=== PATIENT | female | born 1950 | race African-American/Black ===

== ENCOUNTER 2022-12-03 14:44 | Inpatient (IN) | payer OTHER, MEDICAID ==
[2022-12-03] VITALS (7 sets, daily range): BP systolic 109–155
[~2022-12-03] VITALS: Ht 167.6 cm; Wt 135.6 kg
[~2022-12-03 14:44] MED LIST: ACET325T53 PO; AMIO200T66 PO; ASPI-1393 PO; BISA10SU61 RC; COR3.125 PO; DOCU-144 PO; DORZ10DR10 RIGHT EYE; FER300L PO; FURO-149 PO; GUAI100S14 PO; HYDR-4037 PO; HYDR100T25 PO; LIDOINT TP; LIFI1DRO3 LEFT EYE; LOSA100T23 PO; MAGN400T10 PO; MOM PO; POLY17PO44 PO; POTA-197 PO; PREDEYE1% RIGHT EYE; PRO40 PO; TIMO5DRO15 RIGHT EYE; TOBR3.5O2 LEFT EYE; TRAM50TA2 PO; VITD2000 PO; XALEYE OP
--- NOTE | 2022-12-03 14:45 | NUR ---
Patient to ER bed 6 to gown for evaluation. Side rails up.
--- NOTE | 2022-12-03 14:46 | NUR ---
ER at bedside examining patient.
--- NOTE | 2022-12-03 14:47 | NUR ---
Pt bib LACF 64 c/o Resp arrest while en route to other hospital.
[2022-12-03] MEDS ORDERED: PROPOFOL DRIP 100 ML IV ONE ×2 (15:00)
--- NOTE | 2022-12-03 15:00 | NUR ---
PT INTUBATED FOR RESP FAILURE.
--- NOTE | 2022-12-03 15:08 | NUR ---
COVID SWAB COLLECTED AND SENT TO LAB.
--- NOTE | 2022-12-03 15:19 | NUR ---
MRSA SWAB COLLECTED AND SENT TO LAB.
[2022-12-03 15:43] LABS: BASOPHILS % (AUTO) 0.8 % (0.0-2.0); EOSINOPHILS % (AUTO) 0.2 % (0.0-4.0); HEMATOCRIT 37.1 % (36-48); HEMOGLOBIN 11.2 g/dL (12.0-16.0); LYMPHOCYTES # (AUTO) 0.6 K/uL (1.0-5.5); LYMPHOCYTES % (AUTO) 19.1 % (20.5-51.5); MEAN CORPUSCULAR HEMOGLOBIN 27 pg (27-31); MEAN CORPUSCULAR HGB CONC 30 % (32-36); MEAN CORPUSCULAR VOLUME 89 fL (79.0-98.0); MONOCYTES # (AUTO) 0.2 K/uL (0.0-1.0); NEUTROPHILS # (AUTO) 2.5 K/uL (1.8-7.7); NEUTROPHILS % (AUTO) 74.9 % (40.0-70.0); RED BLOOD CELL COUNT(AUTO) 4.16 MIL/uL (4.2-6.2); RED CELL DISTRIBUTION WIDTH 16.4 % (9.0-15.0); WHITE BLOOD COUNT (AUTO) 3.3 K/uL (4.8-10.8)
[2022-12-03 16:00] LABS: ALANINE AMINOTRANSFERASE 14 U/L (12-78); ASPARTATE AMINOTRANSFERASE 23 U/L (10-37); C-REACTIVE PROTEIN QUANT 1.5 mg/dL (0-0.5); CALCIUM 10.1 mg/dL (8.4-11.0); CHLORIDE 100 mmol/L (98-107); CREATININE 0.84 mg/dL (0.55-1.30); GLUCOSE 149 mg/dL (70-99); TOTAL BILIRUBIN 0.5 mg/dL (0.0-1.0); UREA NITROGEN, BLOOD 17 mg/dL (8-21)
[2022-12-03 16:01] LABS: GFR AFRICAN AMERICAN 86 mL/min (>90)
[2022-12-03 16:03] LABS: ANION GAP < 3 (5-15)
[2022-12-03 16:09] LABS: PLATELET COUNT (AUTO) 118 K/uL (130-430)
[2022-12-03] MEDS ORDERED: cefTRIAXone 1 GM in D5W 50 ML IV ONE (16:30)
--- NOTE | 2022-12-03 17:00 | NUR ---
CRITICAL LAB VALUES: D-DIMER [id number] NOTIFIED
[2022-12-03 17:11] LABS: INR 1.1 (0.8-1.2); PROTHROMBIN TIME 11.2 SECS (9.5-12.5)
[2022-12-03] MEDS ORDERED: cefTRIAXone 1 GM IVPB PREMIX 50 ML IV ONE (18:22)
[2022-12-03] MEDS ORDERED: MORPHINE 2 MG/ML INJ. SYRINGE IVP PRN ×2 (19:00)
[2022-12-03] MEDS ORDERED: MUPIROCIN 2% TOPICAL OINTMENT 22 GM NS PRN (19:00)
[2022-12-03] MEDS ORDERED: DOCUSATE SODIUM 100 MG CAPSULE PO PRN (19:00)
[2022-12-03] MEDS ORDERED: ONDANSETRON HCL 4 MG/2 ML VIAL IVP PRN (19:00)
[2022-12-03] MEDS ORDERED: ACETAMINOPHEN 325 MG TABLET PO PRN ×2 (19:00→20:30)
[2022-12-03] MEDS ORDERED: MAGNESIUM SULFATE 50 ML IV PRN (19:00)
[2022-12-03] MEDS ORDERED: hydrALAZINE HCL 20 MG/ML VIAL IVP PRN (19:00)
[2022-12-03] MEDS ORDERED: POTASSIUM CHLORIDE 20 MEQ TAB.PRT.SR PO PRN (19:00)
--- NOTE | 2022-12-03 19:00 | NUR ---
Admit bed requested Patient will be admitted to care of . Admitted to ICU unit. Diagnosis ACUTE RESP FAILURE Inpatient (Yes or No) Y Observation (Yes or No) N Orientation concerns or request close to nursing station (Yes or No) N Covid Status POS On vent or bipap YES Isolation requirements YES Needs a sitter N From Home (Yes or if No enter name of facility) [facility] Requires Dialysis (Yes or No) N Med Rec Completed (Yes of No) Y
--- NOTE | 2022-12-03 19:56 | NUR ---
CAME IN AND SAID THIS IS HIS PATIENT, TO CANCLE DR. FIGUEROA'S ORDERS AND HE WILL PUT IN ORDERS
[2022-12-03] MEDS ORDERED: DEXAMETHASONE SOD PHOSPHATE 4 MG/ML VIAL IVP ONE (20:30)
[2022-12-03] MEDS ORDERED: traMADol HCL HCL 50 MG TABLET (ULTRAM) PO PRN (20:30)
[2022-12-03] MEDS ORDERED: BISACODYL 10 MG/SUPPOSITORY RC PRN (20:30)
[2022-12-03] MEDS ORDERED: ACETAMINOPHEN 325 MG TABLET PO SCH (20:30)
[2022-12-03] MEDS: D5/0.45 NS 1,000 ML IV SCH (20:52)
[2022-12-03] MEDS: CARVEDILOL 3.125 MG TABLET (COREG) PO SCH (20:55)
[2022-12-03] MEDS: VANCOMYCIN HCL 1,250 MG in NS 250 ML IV SCH (20:56)
[2022-12-03] MEDS ORDERED: HEPARIN SODIUM,PORCINE 5,000 UNITS/ML VIAL SUBCUT SCH (21:00)
[2022-12-03] MEDS: DORZOLAMIDE HCL/TIMOLOL MAL. 10 ML EYE DROPS (COSOPT) RIGHT EYE SCH (21:00)
[2022-12-03] MEDS: MILK OF MAGNESIA 30 ML UDC PO SCH (21:00)
[2022-12-03] MEDS: prednisoLONE 1% OPHTHALMIC SUSPN 5 ML OP SCH (21:00)
[2022-12-03] MEDS ORDERED: TOBRAMYCIN/DEXAMETHASONE Non-Formulary 3.5 GM EYE OINT. OP SCH (21:00)
[2022-12-03] MEDS: TOBRAMYCIN SULFATE 0.3% EYE DROPS 5 ML OP SCH (21:00)
[2022-12-03] MEDS: MAGNESIUM OXIDE 400 MG TABLET PO SCH (21:00)
[2022-12-03] MEDS: LATANOPROST 2.5 ML DROPS (XALATAN) OP SCH (21:00)
[2022-12-03] MEDS ORDERED: LIFITEGRAST LEFT EYE SCH (21:00)
[2022-12-03] MEDS: TIMOLOL MALEATE 0.5% OPHTHALMIC DROPS 5 ML RIGHT EYE SCH (21:00)
--- NOTE | 2022-12-03 22:33 | NUR ---
Patient will be admitted to care of DR. Funes. Admitted to unit. Will go to room . Belongings list completed. Complete and up to date summary report printed. SBAR report to be given at bedside with opportunity for questions.
--- NOTE | 2022-12-03 23:30 | NUR ---
RN NOTES CONSULTS FOR DR. DUENAS AND DR. AUNDREA BRAY.
[2022-12-03] MEDS ORDERED: PIPERACILLIN/TAZOBACTAM 3.375 GM/VIAL (ZOSYN) IV ONE (23:46)
[2022-12-03] MEDS: ENOXAPARIN SODIUM 40 MG/0.4 ML SYRINGE SUBCUT SCH (23:53)
[2022-12-03] MEDS: PIPERACILLIN/TAZO 3.375/DEX-IS 50 ML IV SCH (23:54)
[2022-12-04] VITALS (30 sets, daily range): BP systolic 102–189
[2022-12-04] MEDS: PIPERACILLIN/TAZO 3.375/DEX-IS 50 ML IV SCH ×3 (05:05→19:16)
[2022-12-04 07:29] LABS: BASOPHILS % (AUTO) 0.3 % (0.0-2.0); EOSINOPHILS % (AUTO) 0.1 % (0.0-4.0); HEMATOCRIT 36.6 % (36-48); HEMOGLOBIN 11.2 g/dL (12.0-16.0); LYMPHOCYTES # (AUTO) 0.6 K/uL (1.0-5.5); LYMPHOCYTES % (AUTO) 7.3 % (20.5-51.5); MEAN CORPUSCULAR HEMOGLOBIN 27 pg (27-31); MEAN CORPUSCULAR HGB CONC 31 % (32-36); MEAN CORPUSCULAR VOLUME 88 fL (79.0-98.0); MONOCYTES # (AUTO) 0.3 K/uL (0.0-1.0); MONOCYTES % (AUTO) 3.2 % (1.7-9.3); NEUTROPHILS # (AUTO) 7.2 K/uL (1.8-7.7); NEUTROPHILS % (AUTO) 89.1 % (40.0-70.0); PLATELET COUNT (AUTO) 118 K/uL (130-430); RED BLOOD CELL COUNT(AUTO) 4.14 MIL/uL (4.2-6.2); RED CELL DISTRIBUTION WIDTH 15.9 % (9.0-15.0); WHITE BLOOD COUNT (AUTO) 8.1 K/uL (4.8-10.8)
[2022-12-04 07:48] LABS: CALCIUM 10.7 mg/dL (8.4-11.0); CREATININE 0.89 mg/dL (0.55-1.30)
--- NOTE | 2022-12-04 08:00 | NUR ---
Upon morning assessment, this RN attempted to assess bilateral pupils; patient squeezed left eye closed. Right eye with drainage and ANDRZEJ to assess pupils. Eye drops ordered and administered.
[2022-12-04] MEDS: DORZOLAMIDE HCL/TIMOLOL MAL. 10 ML EYE DROPS (COSOPT) RIGHT EYE SCH ×2 (08:29→21:41)
[2022-12-04] MEDS: VANCOMYCIN HCL 1,250 MG in NS 250 ML IV SCH (08:29)
[2022-12-04] MEDS: prednisoLONE 1% OPHTHALMIC SUSPN 5 ML OP SCH ×3 (08:29→21:40)
[2022-12-04] MEDS: TOBRAMYCIN SULFATE 0.3% EYE DROPS 5 ML OP SCH ×2 (08:29→21:40)
[2022-12-04] MEDS: ALBUTEROL SULFATE 0.083% 2.5 MG/3 ML VIAL.NEB INH PRN (08:30)
[2022-12-04] MEDS: TIMOLOL MALEATE 0.5% OPHTHALMIC DROPS 5 ML RIGHT EYE SCH ×3 (08:30→21:41)
[2022-12-04] MEDS: DOCUSATE SODIUM 100 MG CAPSULE PO SCH (09:00)
[2022-12-04] MEDS ORDERED: PANTOPRAZOLE SODIUM 40 MG TAB PO SCH (09:00)
[2022-12-04] MEDS: PANTOPRAZOLE SODIUM 40 MG/VIAL (PROTONIX) IVP SCH (09:58)
[2022-12-04] MEDS: DEXAMETHASONE SOD PHOSPHATE 4 MG/ML VIAL IVP SCH (09:58)
[2022-12-04] MEDS: D5/0.45 NS 1,000 ML IV SCH (10:23)
[2022-12-04] MEDS ORDERED: BARICITINIB -Non-Formulary 2 MG TABLET PO ONE (11:00)
[2022-12-04] MEDS: MILK OF MAGNESIA 30 ML UDC PO SCH ×2 (11:16→21:26)
[2022-12-04] MEDS: FUROSEMIDE 40 MG TABLET PO SCH (11:16)
[2022-12-04] MEDS: ASPIRIN 81 MG TABLET(ECOTRIN) PO SCH (11:16)
[2022-12-04] MEDS: POLYETHYLENE GLYCOL 3350, 17 GM/ POWD.PACK PO SCH (11:17)
[2022-12-04] MEDS: CARVEDILOL 3.125 MG TABLET (COREG) PO SCH ×2 (11:17→21:25)
[2022-12-04] MEDS: CHOLECALCIFEROL (VITAMIN D3) 2,000 UNIT TABLET PO SCH (11:17)
[2022-12-04] MEDS: AMIODARONE HCL 200 MG TABLET PO SCH (11:18)
[2022-12-04] MEDS: AZITHROMYCIN 500 MG in NS 250 ML IV SCH (11:19)
[2022-12-04] MEDS: MAGNESIUM OXIDE 400 MG TABLET PO SCH ×2 (11:19→21:26)
--- NOTE | 2022-12-04 14:22 | NUR ---
CONSULTATION PAGED/CALLED Reason for Consultation: CHF Person Who was Notified: TESSY Consulting Physician: SAMANT. Finney Journeyman Pipe Fitter Specialty: JONATHAN Ordering Physician: KADHIUM. Apple
[2022-12-04 14:55] LABS: INR 1.2 (0.8-1.2); PROTHROMBIN TIME 11.9 SECS (9.5-12.5)
--- NOTE | 2022-12-04 16:07 | NUR ---
Approximately 0930- Dr. Kaur called in. Aware OGT placed and chest xray pending to start tube feeding. Approximately 0935- Dr. Regalado called in. Aware patient covid 19 positive yesterday. To enter new orders. Approximately 1200- Dr. Mckeon rounded. Aware patient has #22 G PIV and LLE I/O access. To enter new orders. Dr. Novoa rounded while this RN on meal break. To return at later time. Approximately 1330- Dr. Kaur at bedside. New orders entered. Approximately 1405- Consult called per corporation secretary to Dr. Mars.
--- NOTE | 2022-12-04 16:20 | NUR ---
RT NOTES FIO2 to 0.30 per titration order. RN made aware
--- NOTE | 2022-12-04 17:30 | NUR ---
Dr. Kaur made aware this RN attempted to contact brother for PICC line consent. Left voicemail but no return call. To deem and document medically necessary. This RN with 2 unsuccessful attempts for peripheral IV's. plastic tubing insulation supervisor made aware.
--- NOTE | 2022-12-04 18:30 | NUR ---
PICC RN called this RN. Made aware Dr. Kaur will document medical necessity for PICC line as family member did not return voicemail/call.
[2022-12-04] MEDS: LATANOPROST 2.5 ML DROPS (XALATAN) OP SCH (21:26)
[2022-12-04] MEDS: ENOXAPARIN SODIUM 40 MG/0.4 ML SYRINGE SUBCUT SCH (21:26)
[2022-12-05] VITALS (31 sets, daily range): BP systolic 143–193
[2022-12-05] MEDS: PIPERACILLIN/TAZO 3.375/DEX-IS 50 ML IV SCH ×5 (05:09→23:22)
[2022-12-05 05:16] LABS: BASOPHILS % (AUTO) 0.1 % (0.0-2.0); HEMATOCRIT 32.8 % (36-48); HEMOGLOBIN 10.5 g/dL (12.0-16.0); LYMPHOCYTES # (AUTO) 1.2 K/uL (1.0-5.5); LYMPHOCYTES % (AUTO) 18.3 % (20.5-51.5); MEAN CORPUSCULAR HEMOGLOBIN 27 pg (27-31); MEAN CORPUSCULAR HGB CONC 32 % (32-36); MEAN CORPUSCULAR VOLUME 85 fL (79.0-98.0); MONOCYTES # (AUTO) 0.7 K/uL (0.0-1.0); MONOCYTES % (AUTO) 11.2 % (1.7-9.3); NEUTROPHILS # (AUTO) 4.4 K/uL (1.8-7.7); NEUTROPHILS % (AUTO) 70.4 % (40.0-70.0); PLATELET COUNT (AUTO) 130 K/uL (130-430); RED BLOOD CELL COUNT(AUTO) 3.83 MIL/uL (4.2-6.2); RED CELL DISTRIBUTION WIDTH 16.2 % (9.0-15.0); WHITE BLOOD COUNT (AUTO) 6.3 K/uL (4.8-10.8)
[2022-12-05 05:32] LABS: CALCIUM 10.6 mg/dL (8.4-11.0); CREATININE 1.14 mg/dL (0.55-1.30)
[2022-12-05] MEDS: PROPOFOL DRIP 100 ML IV PRN ×4 (05:42→22:31)
[2022-12-05] MEDS ORDERED: KCL 40 mEq in 100 mL (PREMIX) 100 ML IV ONE (06:00)
[2022-12-05] MEDS ORDERED: POTASSIUM CHLORIDE 20 MEQ/PKT PACKET PO ONE (06:00)
[2022-12-05] MEDS: POLYETHYLENE GLYCOL 3350, 17 GM/ POWD.PACK PO SCH (08:19)
[2022-12-05] MEDS: PANTOPRAZOLE SODIUM 40 MG/VIAL (PROTONIX) IVP SCH (08:19)
[2022-12-05] MEDS: MAGNESIUM OXIDE 400 MG TABLET PO SCH ×2 (08:21→21:09)
[2022-12-05] MEDS: DOCUSATE SODIUM 100 MG CAPSULE PO SCH (08:22)
[2022-12-05] MEDS: CARVEDILOL 3.125 MG TABLET (COREG) PO SCH ×2 (08:23→21:09)
[2022-12-05] MEDS: FUROSEMIDE 40 MG TABLET PO SCH (08:23)
[2022-12-05] MEDS: ASPIRIN 81 MG TABLET(ECOTRIN) PO SCH (08:23)
[2022-12-05] MEDS: DEXAMETHASONE SOD PHOSPHATE 4 MG/ML VIAL IVP SCH (08:24)
[2022-12-05] MEDS: AMIODARONE HCL 200 MG TABLET PO SCH (08:24)
[2022-12-05] MEDS: KCL 20 mEq in D5/0.45NS 1000mL 1,000 ML IV SCH ×2 (08:25→15:55)
[2022-12-05] MEDS: MILK OF MAGNESIA 30 ML UDC PO SCH ×2 (08:25→21:10)
[2022-12-05] MEDS: prednisoLONE 1% OPHTHALMIC SUSPN 5 ML OP SCH ×3 (08:28→22:39)
[2022-12-05] MEDS: LIFITEGRAST 5% OP SCH ×2 (08:28→22:39)
[2022-12-05] MEDS: BARICITINIB -Non-Formulary 2 MG TABLET PO SCH (08:29)
[2022-12-05] MEDS: TOBRAMYCIN SULFATE 0.3% EYE DROPS 5 ML OP SCH ×2 (08:29→22:39)
[2022-12-05] MEDS: CHOLECALCIFEROL (VITAMIN D3) 2,000 UNIT TABLET PO SCH (08:30)
[2022-12-05] MEDS: DORZOLAMIDE HCL/TIMOLOL MAL. 10 ML EYE DROPS (COSOPT) RIGHT EYE SCH ×2 (08:30→22:40)
[2022-12-05] MEDS: TIMOLOL MALEATE 0.5% OPHTHALMIC DROPS 5 ML RIGHT EYE SCH ×3 (08:31→22:40)
--- NOTE | 2022-12-05 08:40 | NUR ---
SPOKE WITH DR STONER. ADVISED PT IS IN V-TACH AND HAS BEEN GOING IN AND OUT OF V-TACH. ORDERED AN EKG STAT. Addendum: 12/05/22 at 1332 by Keira Aguilar RN EKG SHOWS V-PACED
[2022-12-05] MEDS: AZITHROMYCIN 500 MG in NS 250 ML IV SCH (12:01)
--- NOTE | 2022-12-05 12:13 | NUR ---
1155 cpap 5 ps 10 trial. hr 61 rr30 sat 97%, tv 180. pt was able to do 10min of cpap, low volumes. placed on ac12 400tv per dr yeison scruggs. rn aware, will cont to monitor. Addendum: 12/05/22 at 1216 by Yuko Purcell RT Amended: Links added.
[2022-12-05] MEDS: hydrALAZINE HCL 25 MG TABLET PO SCH ×2 (15:53→21:11)
[2022-12-05] MEDS: D5/0.45 NS 1,000 ML IV SCH ×2 (15:54)
--- NOTE | 2022-12-05 19:15 | NUR ---
Opening notes Received report from endorsing morning shift RN for continuity of care. Patient is lying in bed with IVF D5 1/2 NS @ 65 mL/hr, and propofol @ 25 mcg/kg/min. Patient's vital signs blood pressure 167/93, heart rate 60, respirations 19, SPO2 @ 100% on ventilator. Ventilator settings AC 12, tidal volume 400, FIO2 30%, and peep of 5. OGT is in place, tube feeding is off per MD. Hernández catheter is in place draining to gravity. Bed is locked and in lowest position, call light button within reach, fall and safety precautions is in place.
[2022-12-05] MEDS: ENOXAPARIN SODIUM 40 MG/0.4 ML SYRINGE SUBCUT SCH (21:11)
[2022-12-05] MEDS: LATANOPROST 2.5 ML DROPS (XALATAN) OP SCH (22:40)
[2022-12-06] VITALS (33 sets, daily range): BP systolic 146–187
[2022-12-06] MEDS: PROPOFOL DRIP 100 ML IV PRN ×3 (03:51→22:06)
[2022-12-06] MEDS: hydrALAZINE HCL 25 MG TABLET PO SCH ×3 (05:47→21:13)
[2022-12-06] MEDS: PIPERACILLIN/TAZO 3.375/DEX-IS 50 ML IV SCH ×3 (05:47→18:48)
[2022-12-06] MEDS: KCL 20 mEq in D5/0.45NS 1000mL 1,000 ML IV SCH ×2 (05:47→21:13)
[2022-12-06] MEDS: hydrALAZINE HCL 20 MG/ML VIAL IVP PRN ×4 (05:48→23:04)
[2022-12-06 05:57] LABS: BASOPHILS % (AUTO) 0.2 % (0.0-2.0); EOSINOPHILS % (AUTO) 0.1 % (0.0-4.0); HEMATOCRIT 34.7 % (36-48); HEMOGLOBIN 11.1 g/dL (12.0-16.0); LYMPHOCYTES # (AUTO) 1.1 K/uL (1.0-5.5); LYMPHOCYTES % (AUTO) 17.2 % (20.5-51.5); MEAN CORPUSCULAR HEMOGLOBIN 27 pg (27-31); MEAN CORPUSCULAR HGB CONC 32 % (32-36); MEAN CORPUSCULAR VOLUME 84 fL (79.0-98.0); MONOCYTES # (AUTO) 0.6 K/uL (0.0-1.0); MONOCYTES % (AUTO) 8.9 % (1.7-9.3); NEUTROPHILS # (AUTO) 4.9 K/uL (1.8-7.7); NEUTROPHILS % (AUTO) 73.6 % (40.0-70.0); PLATELET COUNT (AUTO) 141 K/uL (130-430); RED BLOOD CELL COUNT(AUTO) 4.14 MIL/uL (4.2-6.2); RED CELL DISTRIBUTION WIDTH 16.9 % (9.0-15.0); WHITE BLOOD COUNT (AUTO) 6.7 K/uL (4.8-10.8)
[2022-12-06 06:46] LABS: CALCIUM 10.3 mg/dL (8.4-11.0); CREATININE 0.87 mg/dL (0.55-1.30)
[2022-12-06 06:52] LABS: ALBUMIN 2.8 g/dL (3.4-4.8); BILIRUBIN,DIRECT 0.2 mg/dL (0.0-0.3); TOTAL BILIRUBIN 0.6 mg/dL (0.0-1.0)
--- NOTE | 2022-12-06 08:36 | NUR ---
Dietitian Recommendations * Ordered: Jevity 1.2 @ 50 mL/hr (goal rate), Prosource BID w/ FWF of 150 mL q4h via OGT: - Provides: 1440 kcals (1977 kcals w/ propofol), 67 g PRO, and 1868 mL of total volume daily. - Meets (w/ propofol): 98% of est. kcal needs, 86% of upper est. PRO needs, and 93% of lower est. fluid needs daily. Submitted for ANTWAN Davis by Aydee Johnson, MPH, RD Please see Nutrition Assessment for further details. Thanks!
[2022-12-06] MEDS: MAGNESIUM OXIDE 400 MG TABLET PO SCH ×2 (08:42→21:14)
[2022-12-06] MEDS: CARVEDILOL 3.125 MG TABLET (COREG) PO SCH ×2 (08:43→21:13)
[2022-12-06] MEDS: POLYETHYLENE GLYCOL 3350, 17 GM/ POWD.PACK PO SCH (08:44)
[2022-12-06] MEDS: AMIODARONE HCL 200 MG TABLET PO SCH (08:44)
[2022-12-06] MEDS: ASPIRIN 81 MG TABLET(ECOTRIN) PO SCH (08:45)
[2022-12-06] MEDS: FUROSEMIDE 40 MG TABLET PO SCH (08:48)
[2022-12-06] MEDS: PANTOPRAZOLE SODIUM 40 MG/VIAL (PROTONIX) IVP SCH (08:48)
[2022-12-06] MEDS: DEXAMETHASONE SOD PHOSPHATE 4 MG/ML VIAL IVP SCH (08:49)
[2022-12-06] MEDS: BARICITINIB -Non-Formulary 2 MG TABLET PO SCH (08:49)
--- NOTE | 2022-12-06 11:20 | NUR ---
rt notes 1120 Placed pt on CPAP 5,PS10 30% FIO2. Pt only lasted 15-17 mins of CPAP trial. Pt awake, eyes open but pt not pulling enough volume despite coaching, only (200-250ml vt). Pt saturating 99%. will try CPAP again tomorrow. 1137 CPAP trial ended.
[2022-12-06] MEDS: LIFITEGRAST 5% OP SCH ×2 (11:39→21:12)
[2022-12-06] MEDS: prednisoLONE 1% OPHTHALMIC SUSPN 5 ML OP SCH ×3 (11:40→21:12)
[2022-12-06] MEDS: TOBRAMYCIN SULFATE 0.3% EYE DROPS 5 ML OP SCH ×2 (11:40→21:12)
[2022-12-06] MEDS: DOCUSATE SODIUM 100 MG CAPSULE PO SCH (11:40)
[2022-12-06] MEDS: MILK OF MAGNESIA 30 ML UDC PO SCH ×2 (11:41→21:14)
[2022-12-06] MEDS: TIMOLOL MALEATE 0.5% OPHTHALMIC DROPS 5 ML RIGHT EYE SCH ×3 (11:41→21:14)
[2022-12-06] MEDS: CHOLECALCIFEROL (VITAMIN D3) 2,000 UNIT TABLET PO SCH (11:41)
[2022-12-06] MEDS: DORZOLAMIDE HCL/TIMOLOL MAL. 10 ML EYE DROPS (COSOPT) RIGHT EYE SCH ×2 (11:41→21:14)
[2022-12-06] MEDS: AZITHROMYCIN 500 MG in NS 250 ML IV SCH (13:10)
--- NOTE | 2022-12-06 19:15 | NUR ---
Opening notes Received report from endorsing morning shift RN for continuity of care. Patient is lying in bed with IVF D5 1/2 NS @ 65 mL/hr, and propofol @ 25 mcg/kg/min. Patient's vital signs blood pressure 163/105, heart rate 60, respirations 19, SPO2 @ 100% on ventilator. Ventilator settings AC 12, tidal volume 400, FIO2 30%, and peep of 5. OGT is in place, Jevity 1.2 @ 20 mL/hr. Hernández catheter is in place draining to gravity. Bed is locked and in lowest position, call light button within reach, fall and safety precautions is in place.
--- NOTE | 2022-12-06 21:00 | NUR ---
Case management Fanta from case management called for updates regarding patient's condition.
[2022-12-06] MEDS: LATANOPROST 2.5 ML DROPS (XALATAN) OP SCH (21:12)
[2022-12-06] MEDS: ENOXAPARIN SODIUM 40 MG/0.4 ML SYRINGE SUBCUT SCH (21:14)
[2022-12-07] VITALS (32 sets, daily range): BP systolic 105–196
[2022-12-07] MEDS: PIPERACILLIN/TAZO 3.375/DEX-IS 50 ML IV SCH ×4 (00:29→17:21)
[2022-12-07] MEDS: PROPOFOL DRIP 100 ML IV PRN ×3 (03:17→17:02)
[2022-12-07] MEDS: hydrALAZINE HCL 20 MG/ML VIAL IVP PRN ×2 (03:22→15:12)
[2022-12-07] MEDS: hydrALAZINE HCL 25 MG TABLET PO SCH ×3 (05:04→22:23)
[2022-12-07 06:27] LABS: BASOPHILS % (AUTO) 0.1 % (0.0-2.0); HEMATOCRIT 36.3 % (36-48); HEMOGLOBIN 11.7 g/dL (12.0-16.0); LYMPHOCYTES % (AUTO) 18.4 % (20.5-51.5); MEAN CORPUSCULAR HEMOGLOBIN 27 pg (27-31); MEAN CORPUSCULAR HGB CONC 32 % (32-36); MEAN CORPUSCULAR VOLUME 84 fL (79.0-98.0); MONOCYTES # (AUTO) 0.4 K/uL (0.0-1.0); MONOCYTES % (AUTO) 6.6 % (1.7-9.3); NEUTROPHILS # (AUTO) 4.2 K/uL (1.8-7.7); NEUTROPHILS % (AUTO) 74.9 % (40.0-70.0); PLATELET COUNT (AUTO) 147 K/uL (130-430); RED BLOOD CELL COUNT(AUTO) 4.34 MIL/uL (4.2-6.2); RED CELL DISTRIBUTION WIDTH 17.2 % (9.0-15.0); WHITE BLOOD COUNT (AUTO) 5.6 K/uL (4.8-10.8)
[2022-12-07 06:53] LABS: ALBUMIN 2.6 g/dL (3.4-4.8); BILIRUBIN,DIRECT 0.1 mg/dL (0.0-0.3); CALCIUM 10.2 mg/dL (8.4-11.0); CREATININE 0.73 mg/dL (0.55-1.30); TOTAL BILIRUBIN 0.5 mg/dL (0.0-1.0)
--- NOTE | 2022-12-07 07:30 | NUR ---
Opening notes Received report from endorsing NOC shift RN. Patient is on isolation for Covid-19. She is lying in bed with IVF D5 0.45 NS WITH 20 mEq KCL @ 65 mL/hr, and propofol @ 25 mcg/kg/min via her . PT intubated and sedated, ETT to vent with ventilator settings: ACVC Fio2 30%, RR 12, 400vt, and peep of 5 breathing E/U. OGT is in place and secured, running Jevity 1.2 @ 20 mL/hr (goal is 50 but she had around 100ml residuals) with FWF 150ml q4 hrs. Hernández catheter is in place draining to gravity. Bed is locked and in lowest position, call light button within reach, fall and safety precautions is in place. Will continue to monitor closely
--- NOTE | 2022-12-07 08:05 | NUR ---
RT NOTE: 08 Patient tried on CPAP 5, PS 10 at this time. 08 Patient placed on AC mode from CPAP due to RR in mid to high 30s, tidal volumes are lower than 200 per breath, patient is not easily arousable, and does not follow commands. Will continue to try CPAP when sedation is lowered more. Addendum: 12/07/22 at 0822 by Ashley Beard RT Amended: Links added.
[2022-12-07] MEDS: PANTOPRAZOLE SODIUM 40 MG/VIAL (PROTONIX) IVP SCH (08:23)
[2022-12-07] MEDS: BARICITINIB -Non-Formulary 2 MG TABLET PO SCH (08:23)
[2022-12-07] MEDS: DEXAMETHASONE SOD PHOSPHATE 4 MG/ML VIAL IVP SCH (08:23)
[2022-12-07] MEDS: CHOLECALCIFEROL (VITAMIN D3) 2,000 UNIT TABLET PO SCH (08:24)
[2022-12-07] MEDS: ASPIRIN 81 MG TABLET(ECOTRIN) PO SCH (08:25)
[2022-12-07] MEDS: FUROSEMIDE 40 MG TABLET PO SCH (08:25)
[2022-12-07] MEDS: acetaZOLAMIDE 250 MG TABLET (DIAMOX) PO SCH (08:25)
[2022-12-07] MEDS: CARVEDILOL 3.125 MG TABLET (COREG) PO SCH ×2 (08:26→22:25)
[2022-12-07] MEDS: AMIODARONE HCL 200 MG TABLET PO SCH (08:26)
[2022-12-07] MEDS: MAGNESIUM OXIDE 400 MG TABLET PO SCH ×2 (08:27→22:19)
[2022-12-07] MEDS: DORZOLAMIDE HCL/TIMOLOL MAL. 10 ML EYE DROPS (COSOPT) RIGHT EYE SCH ×2 (08:28→22:31)
[2022-12-07] MEDS: TIMOLOL MALEATE 0.5% OPHTHALMIC DROPS 5 ML RIGHT EYE SCH ×3 (08:28→22:32)
[2022-12-07] MEDS: prednisoLONE 1% OPHTHALMIC SUSPN 5 ML OP SCH ×3 (08:28→22:28)
[2022-12-07] MEDS: TOBRAMYCIN SULFATE 0.3% EYE DROPS 5 ML OP SCH ×2 (08:29→22:29)
[2022-12-07] MEDS: LIFITEGRAST 5% OP SCH ×2 (08:29→22:28)
[2022-12-07] MEDS: POLYETHYLENE GLYCOL 3350, 17 GM/ POWD.PACK PO SCH (08:31)
[2022-12-07] MEDS: MILK OF MAGNESIA 30 ML UDC PO SCH ×2 (08:31→21:00)
[2022-12-07] MEDS: DOCUSATE SODIUM 100 MG CAPSULE PO SCH (08:31)
--- NOTE | 2022-12-07 09:00 | NUR ---
PATIENT'S OGT RESIDUALS ARE 300 ML. PER DOCTOR'S ORDER HOLD FEEDING IF RESIDUALS ARE >200. WILL MONITOR AND REASSESS.
--- NOTE | 2022-12-07 11:13 | NUR ---
SPOKE WITH LAURA REQUESTING ORDERS FROM DR. HART.
[2022-12-07] MEDS: AZITHROMYCIN 500 MG in NS 250 ML IV SCH (12:05)
--- NOTE | 2022-12-07 13:17 | NUR ---
DR HART AND I DISCUSSED THE PATIENTS POC, HE IS AWARE OF THE ABG RESULTS FROM TODAY WELL THE NEGATIVE PCR FROM YESTERDAY 12/06, NO NEW ORDERS GIVEN AT THIS TIME
[2022-12-07] MEDS: KCL 20 mEq in D5/0.45NS 1000mL 1,000 ML IV SCH (13:32)
--- NOTE | 2022-12-07 14:45 | NUR ---
RT NOTE: 1445 Patient placed on SIMV 10, PS 12 at this time per Dr Novoa's order. Patient is tolerating change well. Will continue this mode as tolerated by patient. Addendum: 12/07/22 at 1455 by Ashley Beard RT Amended: Links added.
--- NOTE | 2022-12-07 17:30 | NUR ---
PATIENT'S SON ALEXEI ESPINOZA, CALLED FOR AN UPDATE ON HIS MOTHER.
--- NOTE | 2022-12-07 18:30 | NUR ---
PER DR. HART HE WANTS PATIENT TO DECREASE SEDATION TO ASSESS LOC, PROP REDUCED FROM 25MCG/KG/MIN TO 15MCG/KG/MIN. PATIENT OPENS EYES AND ABLE TO NOD HEAD APPROPRIATELY TO SIMPLE "YES" OR "NO" QUESTIONS AND COMMANDS. NO DISTRESS NOTED. WILL CONTINUE TO TITRATE/MONITOR.
--- NOTE | 2022-12-07 19:31 | NUR ---
REPORT GIVEN TO ONCOMING RN WHO ASSUMED TOTAL CARE OF THE PT AT THIS TIME WITH ALL QUESTIONS ANSWERED
--- NOTE | 2022-12-07 20:00 | NUR ---
LOOSE stool noted Total linin bed change TF to off position two person assist / new linin applied Reposition & turning tolerated skin dry warm .
[2022-12-07] MEDS: ENOXAPARIN SODIUM 40 MG/0.4 ML SYRINGE SUBCUT SCH (22:26)
[2022-12-07] MEDS: LATANOPROST 2.5 ML DROPS (XALATAN) OP SCH (22:30)
--- NOTE | 2022-12-07 23:53 | NUR ---
Propofol 20 mcg kg minute Patient pulls out Tubes Respirations Remain regular also unlabored / .
[2022-12-08] VITALS (31 sets, daily range): BP systolic 97–190
--- NOTE | 2022-12-08 | NUR ---
DR MCKINNEYIUM here to see patient , orders for AM labs .
[2022-12-08] MEDS: PIPERACILLIN/TAZO 3.375/DEX-IS 50 ML IV SCH ×5 (01:34→23:58)
--- NOTE | 2022-12-08 01:35 | NUR ---
APRESOLINE 50 MG per OG Tube helpful BP 155/93 HR 60 RR 19 02 SAT 100 %
[2022-12-08] MEDS: KCL 20 mEq in D5/0.45NS 1000mL 1,000 ML IV SCH ×2 (02:51→22:04)
[2022-12-08] MEDS: PROPOFOL DRIP 100 ML IV PRN ×2 (02:53→22:08)
--- NOTE | 2022-12-08 05:12 | NUR ---
loose large stool noted bed linin change total care , kept clean also dry CHG implemented position change tolerated .
[2022-12-08] MEDS: hydrALAZINE HCL 25 MG TABLET PO SCH ×3 (05:41→22:00)
[2022-12-08 06:17] LABS: ALBUMIN 2.5 g/dL (3.4-4.8); BILIRUBIN,DIRECT 0.2 mg/dL (0.0-0.3); CALCIUM 9.7 mg/dL (8.4-11.0); CREATININE 0.76 mg/dL (0.55-1.30); TOTAL BILIRUBIN 0.3 mg/dL (0.0-1.0)
--- NOTE | 2022-12-08 06:20 | NUR ---
APRESOLINE 50 MG via OGT has been administer as ordered , position change also tolerated / .
--- NOTE | 2022-12-08 07:02 | NUR ---
PHONED PAGED DR ANUP WEBER K 2.9
[2022-12-08] MEDS ORDERED: POTASSIUM CHLORIDE 20 MEQ TAB.PRT.SR PO ONE (07:30)
[2022-12-08] MEDS ORDERED: KCL 40 mEq in 100 mL (PREMIX) 100 ML IV ONE (07:30)
[2022-12-08 07:47] LABS: BASOPHILS % (AUTO) 0.1 % (0.0-2.0); EOSINOPHILS % (AUTO) 0.1 % (0.0-4.0); HEMATOCRIT 35.4 % (36-48); HEMOGLOBIN 11.5 g/dL (12.0-16.0); LYMPHOCYTES # (AUTO) 0.9 K/uL (1.0-5.5); LYMPHOCYTES % (AUTO) 14.3 % (20.5-51.5); MEAN CORPUSCULAR HEMOGLOBIN 27 pg (27-31); MEAN CORPUSCULAR HGB CONC 33 % (32-36); MEAN CORPUSCULAR VOLUME 84 fL (79.0-98.0); MONOCYTES # (AUTO) 0.4 K/uL (0.0-1.0); MONOCYTES % (AUTO) 6.5 % (1.7-9.3); NEUTROPHILS # (AUTO) 5.2 K/uL (1.8-7.7); PLATELET COUNT (AUTO) 166 K/uL (130-430); RED BLOOD CELL COUNT(AUTO) 4.24 MIL/uL (4.2-6.2); RED CELL DISTRIBUTION WIDTH 17.1 % (9.0-15.0); WHITE BLOOD COUNT (AUTO) 6.6 K/uL (4.8-10.8)
[2022-12-08] MEDS: DOCUSATE SODIUM 100 MG CAPSULE PO SCH (08:02)
[2022-12-08] MEDS: POLYETHYLENE GLYCOL 3350, 17 GM/ POWD.PACK PO SCH (08:03)
[2022-12-08] MEDS: MILK OF MAGNESIA 30 ML UDC PO SCH ×2 (08:03→21:19)
[2022-12-08] MEDS: DEXAMETHASONE SOD PHOSPHATE 4 MG/ML VIAL IVP SCH (08:14)
[2022-12-08] MEDS: PANTOPRAZOLE SODIUM 40 MG/VIAL (PROTONIX) IVP SCH (08:15)
[2022-12-08] MEDS: ASPIRIN 81 MG TABLET(ECOTRIN) PO SCH (08:16)
[2022-12-08] MEDS: AMIODARONE HCL 200 MG TABLET PO SCH (08:16)
[2022-12-08] MEDS: acetaZOLAMIDE 250 MG TABLET (DIAMOX) PO SCH (08:16)
[2022-12-08] MEDS: CARVEDILOL 3.125 MG TABLET (COREG) PO SCH ×2 (08:16→21:20)
[2022-12-08] MEDS: MAGNESIUM OXIDE 400 MG TABLET PO SCH ×2 (08:17→21:00)
[2022-12-08] MEDS: FUROSEMIDE 40 MG TABLET PO SCH (08:17)
[2022-12-08] MEDS: CHOLECALCIFEROL (VITAMIN D3) 2,000 UNIT TABLET PO SCH (08:18)
[2022-12-08] MEDS: BARICITINIB -Non-Formulary 2 MG TABLET PO SCH (08:18)
[2022-12-08] MEDS: prednisoLONE 1% OPHTHALMIC SUSPN 5 ML OP SCH ×3 (09:12→21:21)
[2022-12-08] MEDS: LIFITEGRAST 5% OP SCH ×2 (09:12→21:00)
[2022-12-08] MEDS: TOBRAMYCIN SULFATE 0.3% EYE DROPS 5 ML OP SCH ×2 (09:12→21:20)
[2022-12-08] MEDS: DORZOLAMIDE HCL/TIMOLOL MAL. 10 ML EYE DROPS (COSOPT) RIGHT EYE SCH ×2 (09:13→21:21)
[2022-12-08] MEDS: TIMOLOL MALEATE 0.5% OPHTHALMIC DROPS 5 ML RIGHT EYE SCH ×3 (09:13→21:21)
--- NOTE | 2022-12-08 10:54 | NUR ---
Nutrition F/U RD reviewed pts current EMR including diet hx, physician notes, nursing notes, pertinent labs/meds/procedures, care trends and care activity. Subjective Information RD rounded to ICU and peaked into pt room. She was receiving Jevity 1.2 @ 40mL/hr, with HOB elevated. RD s/w pt RN Juan Diego and he said she was tolerating TF well and they were going to increase to goal rate (50mL) now. She had 2 loose bowels overnight so he held stool softener. Per EMR review: propofol is running @ 8mL/hr (provides 211 kcal), D5K+Ns running @ 65mL/hr (provides 264 kcal); LABS: K+ 2.9* L, BG 109 H; abd soft, non-distended w/ active bowel sounds; GRV 15 mL (12/08). Pt is likely meeting nutritional needs at this time. 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 Expected Outcomes/Goals * Monitor EN support w/ goal of pt meeting >85% of estimated nutritional needs, nutrition-related labs trending WNL, skin integrity w/ wt. maintenance. Dietitian Recommendations * Continue Jevity 1.2 @ 50 mL/hr (goal rate), Prosource BID w/ FWF of 150 mL q4h via OGT: - Provides: 1440 kcals (1651 kcals w/ propofol), 67 g PRO, and 1868 mL of total volume daily. - Meets (w/ propofol): 82% of est. kcal needs, 86% of upper est. PRO needs, and 93% of lower est. fluid needs daily. *If/when pt is extubated, please contact RD for nutrient re-assessment Follow up *Mod risk: f/u in 3-5 days RAFA, MPH, RD
--- NOTE | 2022-12-08 10:56 | NUR ---
Dietitian Recommendations * Continue Jevity 1.2 @ 50 mL/hr (goal rate), Prosource BID w/ FWF of 150 mL q4h via OGT: - Provides: 1440 kcals (1651 kcals w/ propofol), 67 g PRO, and 1868 mL of total volume daily. - Meets (w/ propofol): 82% of est. kcal needs, 86% of upper est. PRO needs, and 93% of lower est. fluid needs daily. *If/when pt is extubated, please contact RD for nutrient re-assessment GS, MPH, RD Please refer to Nutrition F/U for further details. Thanks!
--- NOTE | 2022-12-08 11:40 | NUR ---
PT PLACED ON CPAP TRIAL BY MD HART AT BEDSIDE. PROPOFOL STOPPED, MD HOSKINS'Reg START OF CPAP TRIAL. TO ATTEMPT CPAP TRIAL FOR 2 HOURS, THEN ABG. RT RYAN UPDATED ON PLAN OF CARE. PT VSS. NAD NOTED. WILL CONT TO MONITOR PT.
--- NOTE | 2022-12-08 11:40 | NUR ---
RT NOTES Per Dr Sommer Springer changed vent to CPAP. Orders to draw ABG after 2 hours if tolerated.
[2022-12-08] MEDS: AZITHROMYCIN 500 MG in NS 250 ML IV SCH (12:13)
[2022-12-08] MEDS: hydrALAZINE HCL 20 MG/ML VIAL IVP PRN (12:14)
--- NOTE | 2022-12-08 14:15 | NUR ---
CPAP TRIAL ENDED PER MD HART AFTER ABG RESULTS RELAYED BY RT RYAN. RESUMED PROPOFOL AT 20MCG/KG/MIN. PT PLACED BACK ON SIMV MODE BY RT RYAN. VSS. NAD NOTED. WILL CONT TO MONITOR PT.
--- NOTE | 2022-12-08 14:16 | NUR ---
RT NOTES Dr Novoa called back, stated that pt is not ready, CO2 is elevated compared to how they've been. orders for vent to previous settings, SIMV. Done at 1420. Yadira Adamson made aware. Pt was made aware of elevated CO2 from ABG results.
[2022-12-08] MEDS: LATANOPROST 2.5 ML DROPS (XALATAN) OP SCH ×2 (21:00→21:20)
[2022-12-08] MEDS: ENOXAPARIN SODIUM 40 MG/0.4 ML SYRINGE SUBCUT SCH (21:20)
[2022-12-09] VITALS (33 sets, daily range): BP systolic 80–197
[2022-12-09] MEDS: hydrALAZINE HCL 20 MG/ML VIAL IVP PRN ×2 (01:43→12:06)
[2022-12-09] MEDS: hydrALAZINE HCL 25 MG TABLET PO SCH ×3 (05:21→21:07)
[2022-12-09] MEDS: PIPERACILLIN/TAZO 3.375/DEX-IS 50 ML IV SCH ×4 (05:22→23:10)
[2022-12-09 06:27] LABS: BASOPHILS % (AUTO) 0.3 % (0.0-2.0); HEMATOCRIT 36.5 % (36-48); HEMOGLOBIN 11.8 g/dL (12.0-16.0); LYMPHOCYTES # (AUTO) 0.7 K/uL (1.0-5.5); MEAN CORPUSCULAR HEMOGLOBIN 27 pg (27-31); MEAN CORPUSCULAR HGB CONC 32 % (32-36); MEAN CORPUSCULAR VOLUME 85 fL (79.0-98.0); MONOCYTES # (AUTO) 0.5 K/uL (0.0-1.0); MONOCYTES % (AUTO) 5.8 % (1.7-9.3); NEUTROPHILS # (AUTO) 6.6 K/uL (1.8-7.7); NEUTROPHILS % (AUTO) 84.9 % (40.0-70.0); PLATELET COUNT (AUTO) 208 K/uL (130-430); RED BLOOD CELL COUNT(AUTO) 4.32 MIL/uL (4.2-6.2); WHITE BLOOD COUNT (AUTO) 7.8 K/uL (4.8-10.8)
[2022-12-09 06:40] LABS: ALBUMIN 2.6 g/dL (3.4-4.8); CALCIUM 9.9 mg/dL (8.4-11.0); CREATININE 0.76 mg/dL (0.55-1.30); TOTAL BILIRUBIN 0.3 mg/dL (0.0-1.0)
--- NOTE | 2022-12-09 07:26 | NUR ---
REPORT GIVEN TO DAY SHIFT RN
[2022-12-09] MEDS: POLYETHYLENE GLYCOL 3350, 17 GM/ POWD.PACK PO SCH (09:19)
[2022-12-09] MEDS: MILK OF MAGNESIA 30 ML UDC PO SCH ×2 (09:19→21:06)
[2022-12-09] MEDS: AMIODARONE HCL 200 MG TABLET PO SCH (09:20)
[2022-12-09] MEDS: DEXAMETHASONE SOD PHOSPHATE 4 MG/ML VIAL IVP SCH (09:21)
[2022-12-09] MEDS: FUROSEMIDE 40 MG TABLET PO SCH (09:22)
[2022-12-09] MEDS: acetaZOLAMIDE 250 MG TABLET (DIAMOX) PO SCH (09:23)
[2022-12-09] MEDS: DOCUSATE SODIUM 100 MG CAPSULE PO SCH (09:23)
[2022-12-09] MEDS: CARVEDILOL 3.125 MG TABLET (COREG) PO SCH ×2 (09:23→21:06)
[2022-12-09] MEDS: ASPIRIN 81 MG TABLET(ECOTRIN) PO SCH (09:23)
[2022-12-09] MEDS: MAGNESIUM OXIDE 400 MG TABLET PO SCH ×2 (09:24→21:06)
[2022-12-09] MEDS: CHOLECALCIFEROL (VITAMIN D3) 2,000 UNIT TABLET PO SCH (09:24)
[2022-12-09] MEDS: TOBRAMYCIN SULFATE 0.3% EYE DROPS 5 ML OP SCH ×2 (09:40→21:06)
[2022-12-09] MEDS: DORZOLAMIDE HCL/TIMOLOL MAL. 10 ML EYE DROPS (COSOPT) RIGHT EYE SCH ×2 (09:40→21:07)
[2022-12-09] MEDS: prednisoLONE 1% OPHTHALMIC SUSPN 5 ML OP SCH ×3 (09:40→21:06)
[2022-12-09] MEDS: TIMOLOL MALEATE 0.5% OPHTHALMIC DROPS 5 ML RIGHT EYE SCH ×3 (09:40→21:07)
[2022-12-09] MEDS: LATANOPROST 2.5 ML DROPS (XALATAN) OP SCH (09:41)
[2022-12-09] MEDS: BARICITINIB -Non-Formulary 2 MG TABLET PO SCH (10:57)
[2022-12-09] MEDS: PANTOPRAZOLE SODIUM 40 MG/VIAL (PROTONIX) IVP SCH (10:59)
--- NOTE | 2022-12-09 11:45 | NUR ---
RT NOTES Dr Sommer james, changed vent to SIMV 6 PS 15.
[2022-12-09] MEDS ORDERED: acetaZOLAMIDE 250 MG TABLET (DIAMOX) PO SCH (12:00)
[2022-12-09] MEDS: PROPOFOL DRIP 100 ML IV PRN (12:03)
[2022-12-09] MEDS: KCL 20 mEq in D5/0.45NS 1000mL 1,000 ML IV SCH (15:55)
[2022-12-09] MEDS ORDERED: POTASSIUM CHLORIDE 20 MEQ/PKT PACKET PO ONE (17:30)
[2022-12-09] MEDS: LIFITEGRAST 5% OP SCH ×2 (21:00→21:32)
[2022-12-09] MEDS: ENOXAPARIN SODIUM 40 MG/0.4 ML SYRINGE SUBCUT SCH (21:07)
[2022-12-10] VITALS (29 sets, daily range): BP systolic 80–169
[2022-12-10] MEDS: PROPOFOL DRIP 100 ML IV PRN (02:24)
[2022-12-10] MEDS: KCL 20 mEq in D5/0.45NS 1000mL 1,000 ML IV SCH ×2 (02:26→11:19)
[2022-12-10 05:01] LABS: BASOPHILS # (AUTO) 0.1 K/uL (0.0-0.2); EOSINOPHILS # (AUTO) 0.2 K/uL (0.0-0.4); EOSINOPHILS % (AUTO) 1.9 % (0.0-4.0); HEMATOCRIT 35.4 % (36-48); HEMOGLOBIN 11.4 g/dL (12.0-16.0); LYMPHOCYTES # (AUTO) 0.7 K/uL (1.0-5.5); LYMPHOCYTES % (AUTO) 7.7 % (20.5-51.5); MEAN CORPUSCULAR HEMOGLOBIN 28 pg (27-31); MEAN CORPUSCULAR HGB CONC 32 % (32-36); MEAN CORPUSCULAR VOLUME 86 fL (79.0-98.0); MONOCYTES # (AUTO) 0.5 K/uL (0.0-1.0); MONOCYTES % (AUTO) 5.4 % (1.7-9.3); NEUTROPHILS # (AUTO) 7.4 K/uL (1.8-7.7); PLATELET COUNT (AUTO) 229 K/uL (130-430); RED BLOOD CELL COUNT(AUTO) 4.14 MIL/uL (4.2-6.2); WHITE BLOOD COUNT (AUTO) 8.8 K/uL (4.8-10.8)
[2022-12-10] MEDS: PIPERACILLIN/TAZO 3.375/DEX-IS 50 ML IV SCH (05:12)
[2022-12-10] MEDS: hydrALAZINE HCL 25 MG TABLET PO SCH ×3 (05:15→22:00)
[2022-12-10 05:25] LABS: CALCIUM 9.4 mg/dL (8.4-11.0); CREATININE 0.83 mg/dL (0.55-1.30)
[2022-12-10] MEDS: PANTOPRAZOLE SODIUM 40 MG/VIAL (PROTONIX) IVP SCH (10:46)
[2022-12-10] MEDS: MILK OF MAGNESIA 30 ML UDC PO SCH ×2 (10:48→21:00)
[2022-12-10] MEDS: BARICITINIB -Non-Formulary 2 MG TABLET PO SCH (10:49)
[2022-12-10] MEDS: MAGNESIUM OXIDE 400 MG TABLET PO SCH ×2 (10:50→21:12)
[2022-12-10] MEDS: CARVEDILOL 3.125 MG TABLET (COREG) PO SCH ×2 (10:55→21:00)
[2022-12-10] MEDS: DEXAMETHASONE SOD PHOSPHATE 4 MG/ML VIAL IVP SCH (11:05)
[2022-12-10] MEDS: LIFITEGRAST 5% OP SCH ×2 (11:06→21:10)
[2022-12-10] MEDS: TOBRAMYCIN SULFATE 0.3% EYE DROPS 5 ML OP SCH ×2 (11:07→21:11)
[2022-12-10] MEDS: prednisoLONE 1% OPHTHALMIC SUSPN 5 ML OP SCH ×3 (11:07→21:10)
[2022-12-10] MEDS: AMIODARONE HCL 200 MG TABLET PO SCH (11:09)
[2022-12-10] MEDS: DOCUSATE SODIUM 100 MG CAPSULE PO SCH (11:10)
[2022-12-10] MEDS: acetaZOLAMIDE 250 MG TABLET (DIAMOX) PO SCH (11:11)
[2022-12-10] MEDS: ASPIRIN 81 MG TABLET(ECOTRIN) PO SCH (11:12)
[2022-12-10] MEDS: FUROSEMIDE 20 MG TABLET PO SCH (11:14)
[2022-12-10] MEDS: POLYETHYLENE GLYCOL 3350, 17 GM/ POWD.PACK PO SCH (11:15)
[2022-12-10] MEDS: CHOLECALCIFEROL (VITAMIN D3) 2,000 UNIT TABLET PO SCH (11:16)
[2022-12-10] MEDS: DORZOLAMIDE HCL/TIMOLOL MAL. 10 ML EYE DROPS (COSOPT) RIGHT EYE SCH ×2 (11:17→21:12)
[2022-12-10] MEDS: TIMOLOL MALEATE 0.5% OPHTHALMIC DROPS 5 ML RIGHT EYE SCH ×3 (11:19→21:12)
--- NOTE | 2022-12-10 16:25 | NUR ---
RT NOTES 1625 MD HART CPAP TRIAL ON PT, AND ABG AFTER 2HOURS IF TOLERATED. PLACED PT ON CPAP 5, PS15 30% FIO2. PT TOLERATING WELL. ENCOURAGED PT TO FOCUS DEEP BREATHING, STAY CALM AND DONT PANIC. PT PULLING ADEQUATE VOLUME 400s, HR 60, RR 18. WILL CONT TO MONITOR PT. WANDA HILL AT BEDSIDE.
[2022-12-10] MEDS: ENOXAPARIN SODIUM 40 MG/0.4 ML SYRINGE SUBCUT SCH (21:00)
[2022-12-10] MEDS: LATANOPROST 2.5 ML DROPS (XALATAN) OP SCH (21:11)
[2022-12-10] MEDS: CEFEPIME 2 GM in D5W 100 ML IV SCH (21:13)
[2022-12-11] VITALS (29 sets, daily range): BP systolic 87–146
[2022-12-11 05:13] LABS: BASOPHILS % (AUTO) 0.1 % (0.0-2.0); EOSINOPHILS % (AUTO) 0.1 % (0.0-4.0); HEMATOCRIT 31.3 % (36-48); HEMOGLOBIN 9.9 g/dL (12.0-16.0); LYMPHOCYTES # (AUTO) 0.5 K/uL (1.0-5.5); LYMPHOCYTES % (AUTO) 6.6 % (20.5-51.5); MEAN CORPUSCULAR HEMOGLOBIN 27 pg (27-31); MEAN CORPUSCULAR HGB CONC 32 % (32-36); MEAN CORPUSCULAR VOLUME 86 fL (79.0-98.0); MONOCYTES # (AUTO) 0.3 K/uL (0.0-1.0); MONOCYTES % (AUTO) 3.9 % (1.7-9.3); NEUTROPHILS # (AUTO) 6.7 K/uL (1.8-7.7); NEUTROPHILS % (AUTO) 89.3 % (40.0-70.0); PLATELET COUNT (AUTO) 181 K/uL (130-430); RED BLOOD CELL COUNT(AUTO) 3.66 MIL/uL (4.2-6.2); WHITE BLOOD COUNT (AUTO) 7.5 K/uL (4.8-10.8)
[2022-12-11 05:47] LABS: CALCIUM 9.1 mg/dL (8.4-11.0); CREATININE 0.75 mg/dL (0.55-1.30)
[2022-12-11] MEDS: hydrALAZINE HCL 25 MG TABLET PO SCH ×3 (06:00→21:07)
[2022-12-11] MEDS: KCL 20 mEq in D5/0.45NS 1000mL 1,000 ML IV SCH (06:15)
[2022-12-11] MEDS: CEFEPIME 2 GM in D5W 100 ML IV SCH ×2 (08:20→21:05)
[2022-12-11] MEDS: PANTOPRAZOLE SODIUM 40 MG/VIAL (PROTONIX) IVP SCH (08:21)
[2022-12-11] MEDS: DEXAMETHASONE SOD PHOSPHATE 4 MG/ML VIAL IVP SCH (08:21)
[2022-12-11] MEDS: AMIODARONE HCL 200 MG TABLET PO SCH (08:21)
[2022-12-11] MEDS: ASPIRIN 81 MG TABLET(ECOTRIN) PO SCH (08:22)
[2022-12-11] MEDS: CARVEDILOL 3.125 MG TABLET (COREG) PO SCH ×2 (08:22→21:06)
[2022-12-11] MEDS: DOCUSATE SODIUM 100 MG CAPSULE PO SCH (08:22)
[2022-12-11] MEDS: FUROSEMIDE 20 MG TABLET PO SCH (08:22)
[2022-12-11] MEDS: acetaZOLAMIDE 250 MG TABLET (DIAMOX) PO SCH (08:22)
[2022-12-11] MEDS: POLYETHYLENE GLYCOL 3350, 17 GM/ POWD.PACK PO SCH (08:23)
[2022-12-11] MEDS: MAGNESIUM OXIDE 400 MG TABLET PO SCH ×2 (08:23→21:06)
[2022-12-11] MEDS: CHOLECALCIFEROL (VITAMIN D3) 2,000 UNIT TABLET PO SCH (08:23)
[2022-12-11] MEDS: MILK OF MAGNESIA 30 ML UDC PO SCH ×2 (08:23→21:00)
[2022-12-11] MEDS: BARICITINIB -Non-Formulary 2 MG TABLET PO SCH (08:24)
[2022-12-11] MEDS: LIFITEGRAST 5% OP SCH ×2 (09:00→21:06)
[2022-12-11] MEDS: TOBRAMYCIN SULFATE 0.3% EYE DROPS 5 ML OP SCH ×2 (09:33→21:06)
[2022-12-11] MEDS: prednisoLONE 1% OPHTHALMIC SUSPN 5 ML OP SCH ×3 (09:34→21:06)
[2022-12-11] MEDS: DORZOLAMIDE HCL/TIMOLOL MAL. 10 ML EYE DROPS (COSOPT) RIGHT EYE SCH ×2 (09:36→21:07)
[2022-12-11] MEDS: TIMOLOL MALEATE 0.5% OPHTHALMIC DROPS 5 ML RIGHT EYE SCH ×3 (09:38→21:07)
[2022-12-11] MEDS: PROPOFOL DRIP 100 ML IV PRN (11:05)
--- NOTE | 2022-12-11 17:30 | NUR ---
1630 DR HART PLACED PT ON CPAP TRIAL @123. PLACED PT BACK TO [facility] POST CPAP TRIAL. PT TOLERATED WELL. Addendum: 12/11/22 at 1731 by Yuko Purcell RT Amended: Links added.
--- NOTE | 2022-12-11 19:28 | NUR ---
EOSS Dr. Mars rounded this morning. Dr. Novoa rounded this afternoon. ID rounded this shift. Maik, caregiver, requests to speak to Dr. Mars tomorrow. PM shift made aware to pass phone number [phone]
[2022-12-11] MEDS: ENOXAPARIN SODIUM 40 MG/0.4 ML SYRINGE SUBCUT SCH (21:07)
[2022-12-11] MEDS: LATANOPROST 2.5 ML DROPS (XALATAN) OP SCH (21:09)
[2022-12-12] VITALS (31 sets, daily range): BP systolic 96–155
[2022-12-12] MEDS: hydrALAZINE HCL 25 MG TABLET PO SCH ×3 (05:29→22:55)
[2022-12-12 06:21] LABS: BASOPHILS % (AUTO) 0.1 % (0.0-2.0); EOSINOPHILS % (AUTO) 0.1 % (0.0-4.0); HEMATOCRIT 30.9 % (36-48); HEMOGLOBIN 9.7 g/dL (12.0-16.0); LYMPHOCYTES # (AUTO) 0.6 K/uL (1.0-5.5); LYMPHOCYTES % (AUTO) 7.6 % (20.5-51.5); MEAN CORPUSCULAR HEMOGLOBIN 27 pg (27-31); MEAN CORPUSCULAR HGB CONC 31 % (32-36); MEAN CORPUSCULAR VOLUME 86 fL (79.0-98.0); MONOCYTES # (AUTO) 0.5 K/uL (0.0-1.0); MONOCYTES % (AUTO) 6.2 % (1.7-9.3); NEUTROPHILS # (AUTO) 7.3 K/uL (1.8-7.7); PLATELET COUNT (AUTO) 194 K/uL (130-430); RED BLOOD CELL COUNT(AUTO) 3.59 MIL/uL (4.2-6.2); RED CELL DISTRIBUTION WIDTH 18.2 % (9.0-15.0); WHITE BLOOD COUNT (AUTO) 8.5 K/uL (4.8-10.8)
[2022-12-12 06:55] LABS: CALCIUM 9.1 mg/dL (8.4-11.0); CREATININE 0.63 mg/dL (0.55-1.30)
--- NOTE | 2022-12-12 07:30 | NUR ---
Received report from assistant casino shift manager RN for continuity of care. Patient is lying in bed with propofol @ 15 mcg/kg/min. Patient's vital signs STABLE, SPO2 @ 100% on ventilator. Ventilator settings SIMV, tidal volume 400, FIO2 30%, and peep of 5. OGT is in place, tube feeding. Hernández catheter is in place draining to gravity. Bed is locked and in lowest position, call light button within reach, fall and safety precautions is in place.
[2022-12-12] MEDS: DOCUSATE SODIUM 100 MG CAPSULE PO SCH (07:40)
[2022-12-12] MEDS: POLYETHYLENE GLYCOL 3350, 17 GM/ POWD.PACK PO SCH (07:40)
[2022-12-12] MEDS: ALBUTEROL SULFATE 0.083% 2.5 MG/3 ML VIAL.NEB INH PRN (08:31)
[2022-12-12] MEDS: PANTOPRAZOLE SODIUM 40 MG/VIAL (PROTONIX) IVP SCH (08:50)
[2022-12-12] MEDS: CEFEPIME 2 GM in D5W 100 ML IV SCH ×2 (08:50→21:33)
[2022-12-12] MEDS: DEXAMETHASONE SOD PHOSPHATE 4 MG/ML VIAL IVP SCH (08:50)
[2022-12-12] MEDS: AMIODARONE HCL 200 MG TABLET PO SCH (08:51)
[2022-12-12] MEDS: CARVEDILOL 3.125 MG TABLET (COREG) PO SCH ×2 (08:51→21:35)
[2022-12-12] MEDS: acetaZOLAMIDE 250 MG TABLET (DIAMOX) PO SCH (08:51)
[2022-12-12] MEDS: ASPIRIN 81 MG TABLET(ECOTRIN) PO SCH (08:51)
[2022-12-12] MEDS: FUROSEMIDE 20 MG TABLET PO SCH (08:52)
[2022-12-12] MEDS: MILK OF MAGNESIA 30 ML UDC PO SCH ×2 (08:52→21:35)
[2022-12-12] MEDS: MAGNESIUM OXIDE 400 MG TABLET PO SCH ×2 (08:52→21:35)
[2022-12-12] MEDS: BARICITINIB -Non-Formulary 2 MG TABLET PO SCH (08:52)
[2022-12-12] MEDS: CHOLECALCIFEROL (VITAMIN D3) 2,000 UNIT TABLET PO SCH (08:52)
[2022-12-12] MEDS: LIFITEGRAST 5% OP SCH ×2 (09:26→21:33)
[2022-12-12] MEDS: DORZOLAMIDE HCL/TIMOLOL MAL. 10 ML EYE DROPS (COSOPT) RIGHT EYE SCH ×2 (09:27→21:35)
[2022-12-12] MEDS: TOBRAMYCIN SULFATE 0.3% EYE DROPS 5 ML OP SCH ×2 (09:27→21:34)
[2022-12-12] MEDS: prednisoLONE 1% OPHTHALMIC SUSPN 5 ML OP SCH ×3 (09:27→21:34)
[2022-12-12] MEDS: TIMOLOL MALEATE 0.5% OPHTHALMIC DROPS 5 ML RIGHT EYE SCH ×3 (09:27→21:36)
[2022-12-12] MEDS: PROPOFOL DRIP 100 ML IV PRN ×2 (09:28→23:52)
--- NOTE | 2022-12-12 11:10 | NUR ---
Wound Evaluation: Late note for 12/12/2022 at 1110 secondary to patient care. Wound Consult ordered for Low Vega Score. Patient evaluated for a low Vega score of 14. Patient was intubated, sedated, and received in a Rashaad Bed with an Isoflex CIPRIANO mattress with low air loss therapy initiated. Patient needs to be turned in bed. Skin is intact. Recommend: Reposition patient side to side only every 2 hours with pillow support. Elevate, off-load and float bilateral heels with pillows. Offload pressure areas with pillows for pressure re-distribution. Perform skin care and monitor skin integrity Q shift. Use moisture barrier cream on moisture susceptible areas QID and PRN for soiling. Maintain patient on low air-loss therapy.
[2022-12-12] MEDS: KCL 20 mEq in D5/0.45NS 1000mL 1,000 ML IV SCH (14:01)
--- NOTE | 2022-12-12 14:07 | NUR ---
RT NOTES Per Dr Sommer Amos changed vent to CPAP, to be tried for 2 hours as tolerated and draw ABG.
--- NOTE | 2022-12-12 16:07 | NUR ---
RT NOTES Left message for ABG result.
--- NOTE | 2022-12-12 17:28 | NUR ---
RT NOTES Still awaiting for Dr Novoa's call back for ABG results. Per RN, vent back to previous settings.
[2022-12-12] MEDS: LATANOPROST 2.5 ML DROPS (XALATAN) OP SCH (21:34)
[2022-12-12] MEDS: ENOXAPARIN SODIUM 40 MG/0.4 ML SYRINGE SUBCUT SCH (21:36)
[2022-12-13] VITALS (30 sets, daily range): BP systolic 104–164
[2022-12-13 05:55] LABS: EOSINOPHILS % (AUTO) 0.4 % (0.0-4.0); HEMATOCRIT 30.1 % (36-48); HEMOGLOBIN 9.6 g/dL (12.0-16.0); LYMPHOCYTES # (AUTO) 0.4 K/uL (1.0-5.5); LYMPHOCYTES % (AUTO) 5.5 % (20.5-51.5); MEAN CORPUSCULAR HEMOGLOBIN 27 pg (27-31); MEAN CORPUSCULAR HGB CONC 32 % (32-36); MEAN CORPUSCULAR VOLUME 86 fL (79.0-98.0); MONOCYTES # (AUTO) 0.5 K/uL (0.0-1.0); MONOCYTES % (AUTO) 6.6 % (1.7-9.3); NEUTROPHILS % (AUTO) 87.5 % (40.0-70.0); PLATELET COUNT (AUTO) 234 K/uL (130-430)
[2022-12-13 06:21] LABS: CALCIUM 9.4 mg/dL (8.4-11.0); CREATININE 0.55 mg/dL (0.55-1.30)
[2022-12-13] MEDS: hydrALAZINE HCL 25 MG TABLET PO SCH ×3 (06:46→21:49)
[2022-12-13] MEDS: KCL 20 mEq in D5/0.45NS 1000mL 1,000 ML IV SCH ×2 (06:46→19:51)
--- NOTE | 2022-12-13 07:30 | NUR ---
Received report from mini shifter RN for continuity of care. Patient is lying in bed with propofol @ 15 mcg/kg/min. Patient's vital signs STABLE, SPO2 @ 100% on ventilator. Ventilator settings SIMV, tidal volume 400, FIO2 30%, and peep of 5. OGT is in place, tube feeding. Hernández catheter is in place draining to gravity. Bed is locked and in lowest position, call light button within reach, fall and safety precautions is in place.
[2022-12-13] MEDS: MILK OF MAGNESIA 30 ML UDC PO SCH ×2 (07:35→21:00)
[2022-12-13] MEDS: DOCUSATE SODIUM 100 MG CAPSULE PO SCH (07:35)
[2022-12-13] MEDS: POLYETHYLENE GLYCOL 3350, 17 GM/ POWD.PACK PO SCH (07:36)
[2022-12-13] MEDS: MAGNESIUM OXIDE 400 MG TABLET PO SCH ×2 (09:00→21:00)
[2022-12-13] MEDS: CEFEPIME 2 GM in D5W 100 ML IV SCH ×2 (09:35→21:59)
[2022-12-13] MEDS: BARICITINIB -Non-Formulary 2 MG TABLET PO SCH (09:36)
[2022-12-13] MEDS: DEXAMETHASONE SOD PHOSPHATE 4 MG/ML VIAL IVP SCH (09:37)
[2022-12-13] MEDS: PANTOPRAZOLE SODIUM 40 MG/VIAL (PROTONIX) IVP SCH (09:38)
[2022-12-13] MEDS: acetaZOLAMIDE 250 MG TABLET (DIAMOX) PO SCH (09:38)
[2022-12-13] MEDS: ASPIRIN 81 MG TABLET(ECOTRIN) PO SCH (09:38)
[2022-12-13] MEDS: CHOLECALCIFEROL (VITAMIN D3) 2,000 UNIT TABLET PO SCH (09:39)
[2022-12-13] MEDS: CARVEDILOL 3.125 MG TABLET (COREG) PO SCH ×2 (09:40→21:00)
[2022-12-13] MEDS: AMIODARONE HCL 200 MG TABLET PO SCH (09:41)
[2022-12-13] MEDS: FUROSEMIDE 20 MG TABLET PO SCH (09:42)
[2022-12-13] MEDS: PROPOFOL DRIP 100 ML IV PRN (09:44)
[2022-12-13] MEDS: DORZOLAMIDE HCL/TIMOLOL MAL. 10 ML EYE DROPS (COSOPT) RIGHT EYE SCH ×2 (09:49→21:49)
[2022-12-13] MEDS: prednisoLONE 1% OPHTHALMIC SUSPN 5 ML OP SCH ×3 (09:49→21:47)
[2022-12-13] MEDS: TOBRAMYCIN SULFATE 0.3% EYE DROPS 5 ML OP SCH ×2 (09:49→21:48)
[2022-12-13] MEDS: TIMOLOL MALEATE 0.5% OPHTHALMIC DROPS 5 ML RIGHT EYE SCH ×3 (09:49→21:49)
[2022-12-13] MEDS: LIFITEGRAST 5% OP SCH ×2 (09:49→21:47)
--- NOTE | 2022-12-13 09:55 | NUR ---
RT NOTES Relayed cpap order with Rt Cathy and Rn Jose E
[2022-12-13] MEDS ORDERED: PROPOFOL DRIP 100 ML IV PRN (10:45)
--- NOTE | 2022-12-13 14:35 | NUR ---
MD HART ROUNDING AND BASED ON ABG RESULT AND ASSESSMENT, PT TO BE EXTUBATED.
--- NOTE | 2022-12-13 14:50 | NUR ---
1450 extubated pt and placed on 3 lpm nc with etco2 monitor. no resp.distress noted.
--- NOTE | 2022-12-13 17:00 | NUR ---
CLEANED AND REPOSITIONED PATIENT. NOTIFIED NIECE OF PATIENT STATUS, EXTUBATION, AND COMMUNICATED CURRENT MENTATION OF PATIENT.
[2022-12-13] MEDS: LATANOPROST 2.5 ML DROPS (XALATAN) OP SCH (21:48)
[2022-12-13] MEDS: ENOXAPARIN SODIUM 40 MG/0.4 ML SYRINGE SUBCUT SCH (21:51)
[2022-12-13] MEDS: hydrALAZINE HCL 20 MG/ML VIAL IVP PRN (21:53)
[2022-12-14] VITALS (24 sets, daily range): BP systolic 109–161
[2022-12-14 05:27] LABS: BASOPHILS % (AUTO) 0.1 % (0.0-2.0); EOSINOPHILS % (AUTO) 0.6 % (0.0-4.0); HEMOGLOBIN 9.6 g/dL (12.0-16.0); LYMPHOCYTES # (AUTO) 0.5 K/uL (1.0-5.5); LYMPHOCYTES % (AUTO) 8.3 % (20.5-51.5); MEAN CORPUSCULAR HEMOGLOBIN 27 pg (27-31); MEAN CORPUSCULAR HGB CONC 32 % (32-36); MEAN CORPUSCULAR VOLUME 86 fL (79.0-98.0); MONOCYTES # (AUTO) 0.5 K/uL (0.0-1.0); MONOCYTES % (AUTO) 7.8 % (1.7-9.3); NEUTROPHILS # (AUTO) 5.2 K/uL (1.8-7.7); NEUTROPHILS % (AUTO) 83.2 % (40.0-70.0); PLATELET COUNT (AUTO) 266 K/uL (130-430); WHITE BLOOD COUNT (AUTO) 6.3 K/uL (4.8-10.8)
[2022-12-14] MEDS: hydrALAZINE HCL 25 MG TABLET PO SCH ×3 (06:00→21:59)
[2022-12-14 06:07] LABS: CALCIUM 9.4 mg/dL (8.4-11.0); CREATININE 0.61 mg/dL (0.55-1.30)
--- NOTE | 2022-12-14 09:37 | NUR ---
Nutrition F/U RD reviewed pts current EMR including diet hx, physician notes, nursing notes, pertinent labs/meds/procedures, care trends and care activity. Subjective Information 12/13: Pt extubated successfully RD attended ICU rounds and s/w primary RN regarding pt. He reports that pt is on 2L-NC and Bipap at night d/t her C02 is still running a bit high; pt will receive swallow eval today. Per EMR review: abd soft, non-distended w/ active bowel sounds; Vega: 14. Pt is likely not meeting nutritional needs at this time. 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 Expected Outcomes/Goals * Monitor EN support w/ goal of pt meeting >85% of estimated nutritional needs, nutrition-related labs trending WNL, skin integrity w/ wt. maintenance. Dietitian Recommendations * Recommend swallow evaluation * Advance diet per DOG HANDLER OR TRAINER rec Follow up * High risk: f/u in 2-3 days GS, MPH, RD
--- NOTE | 2022-12-14 09:41 | NUR ---
Dietitian Recommendations * Recommend swallow evaluation * Advance diet per BOOSTER PUMP OILER rec GS, MPH, RD Please refer to Nutrition F/U for further details. Thanks!
--- NOTE | 2022-12-14 11:05 | NUR ---
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 I introduced myself to the patient and advised her why I was in to speak with her. The patient was open, engaging, and in agreement to speaking with me. Per patient, she resides at [facility]. She states she has been there a few years, but she should be returning home soon. She states her support are her nieces and nephews, as well as their children whom she claims as her grandchildren. At [facility], the patient states she does participate in therapy services and she does occasionally talk to somebody that comes by. I inquired about her statements related to wanting to / wanting to kill herself with nursing. She states she is frustrated and just depressed. I asked her why she is depressed and what makes her feel that way. Per patient, she can not eat, but wants to. She states she wants to be able to get up and not be laying down in the bed all day. The nurse was advised by myself and the charge nurse of ICU that prior to getting up, she will need to be evaluated by rehab first, but the priority at this time is to get her better so she can get out of ICU and eventually back to [facility]. The patient was accepting or the response, and advised she would never kill herself. I inquired about speaking to a therapist via a telehealth method where she can talk with someone over a monitor. The patient indicated she wouldn't mind. I told her that should the be in agreement, she will have the opportunity to express her frustrations with a therapist while she is here. Prior to leaving the unit, I spoke with the SITE MONITOR Courtney RUIZ and advised her of our conversation. I inquired about a telepsyche visit in which the patient could talk with a therapist via the telemonitor, in she indicated she would ask the dr. I advised her that resources were not left with the patient, as the patient is from a facility that is offering her therapeutic services and the patient was/is talking out of circumstantial frustration with no plan or idea as to how such an incident would take place. Per nurse, she will inquire with the about a telepsyche visit. At this time, there are no further needs from protective services social worker.
[2022-12-14] MEDS: CEFEPIME 2 GM in D5W 100 ML IV SCH ×2 (11:17→21:32)
[2022-12-14] MEDS: DEXAMETHASONE SOD PHOSPHATE 4 MG/ML VIAL IVP SCH (11:18)
[2022-12-14] MEDS: PANTOPRAZOLE SODIUM 40 MG/VIAL (PROTONIX) IVP SCH (11:18)
[2022-12-14] MEDS: prednisoLONE 1% OPHTHALMIC SUSPN 5 ML OP SCH ×3 (11:18→21:54)
[2022-12-14] MEDS: DORZOLAMIDE HCL/TIMOLOL MAL. 10 ML EYE DROPS (COSOPT) RIGHT EYE SCH ×2 (11:19→21:48)
[2022-12-14] MEDS: TIMOLOL MALEATE 0.5% OPHTHALMIC DROPS 5 ML RIGHT EYE SCH ×3 (11:19→21:47)
[2022-12-14] MEDS: TOBRAMYCIN SULFATE 0.3% EYE DROPS 5 ML OP SCH ×2 (11:19→21:54)
[2022-12-14] MEDS: BARICITINIB -Non-Formulary 2 MG TABLET PO SCH (12:20)
[2022-12-14] MEDS: FUROSEMIDE 20 MG TABLET PO SCH (12:22)
[2022-12-14] MEDS: ASPIRIN 81 MG TABLET(ECOTRIN) PO SCH (12:23)
[2022-12-14] MEDS: acetaZOLAMIDE 250 MG TABLET (DIAMOX) PO SCH (12:23)
[2022-12-14] MEDS: CHOLECALCIFEROL (VITAMIN D3) 2,000 UNIT TABLET PO SCH (12:25)
[2022-12-14] MEDS: AMIODARONE HCL 200 MG TABLET PO SCH (12:26)
[2022-12-14] MEDS: DOCUSATE SODIUM 100 MG CAPSULE PO SCH (12:27)
[2022-12-14] MEDS: CARVEDILOL 3.125 MG TABLET (COREG) PO SCH ×2 (12:28→21:35)
[2022-12-14] MEDS: MAGNESIUM OXIDE 400 MG TABLET PO SCH ×2 (12:28→21:33)
[2022-12-14] MEDS: POLYETHYLENE GLYCOL 3350, 17 GM/ POWD.PACK PO SCH (12:29)
[2022-12-14] MEDS: LIFITEGRAST 5% OP SCH ×2 (12:56→21:57)
[2022-12-14] MEDS: MILK OF MAGNESIA 30 ML UDC PO SCH ×2 (12:58→21:34)
[2022-12-14] MEDS: KCL 20 mEq in D5/0.45NS 1000mL 1,000 ML IV SCH (12:59)
--- NOTE | 2022-12-14 15:36 | NUR ---
Psych Eval- Spoke with Dr. Kaur regarding a psych eval. He said not yet, its too early and he wants her to have more time to become more clear in her thinking.
--- NOTE | 2022-12-14 17:01 | NUR ---
ST EVALUATION COMPLETED. ST TX NOT INDICATED. RECOMMEND PO DIET OF PUREE AND THIN LIQUID. 1:1 SUPERVISION AND FULL ASPIRATION PRECAUTIONS.
--- NOTE | 2022-12-14 17:05 | NUR ---
SPOKE WITH DOCTORS EXCHANGE REGARDING NEW CONSULT FOR DR. OSBORNE ORDERED BY DR. GALARZA FOR DIAGNOSIS OF MAJOR DEPRESSION.
[2022-12-14] MEDS: LATANOPROST 2.5 ML DROPS (XALATAN) OP SCH (21:33)
[2022-12-14] MEDS: ENOXAPARIN SODIUM 40 MG/0.4 ML SYRINGE SUBCUT SCH (21:42)
[2022-12-15] VITALS (21 sets, daily range): BP systolic 102–158
[2022-12-15] MEDS: hydrALAZINE HCL 25 MG TABLET PO SCH ×3 (05:51→23:25)
[2022-12-15] MEDS: AMIODARONE HCL 200 MG TABLET PO SCH (08:15)
[2022-12-15] MEDS: DOCUSATE SODIUM 100 MG CAPSULE PO SCH (08:17)
[2022-12-15] MEDS: MILK OF MAGNESIA 30 ML UDC PO SCH ×3 (08:19→23:17)
[2022-12-15] MEDS: PANTOPRAZOLE SODIUM 40 MG/VIAL (PROTONIX) IVP SCH (08:20)
[2022-12-15] MEDS: ASPIRIN 81 MG TABLET(ECOTRIN) PO SCH (08:20)
[2022-12-15] MEDS: CARVEDILOL 3.125 MG TABLET (COREG) PO SCH ×2 (08:21→23:26)
[2022-12-15] MEDS: CHOLECALCIFEROL (VITAMIN D3) 2,000 UNIT TABLET PO SCH (08:22)
[2022-12-15] MEDS: FUROSEMIDE 20 MG TABLET PO SCH (08:22)
[2022-12-15] MEDS: DEXAMETHASONE SOD PHOSPHATE 4 MG/ML VIAL IVP SCH (08:23)
[2022-12-15] MEDS: acetaZOLAMIDE 250 MG TABLET (DIAMOX) PO SCH (08:23)
[2022-12-15] MEDS: BARICITINIB -Non-Formulary 2 MG TABLET PO SCH (08:30)
[2022-12-15] MEDS: MAGNESIUM OXIDE 400 MG TABLET PO SCH ×2 (08:36→23:17)
[2022-12-15] MEDS: CEFEPIME 2 GM in D5W 100 ML IV SCH ×2 (09:05→23:17)
[2022-12-15] MEDS: POLYETHYLENE GLYCOL 3350, 17 GM/ POWD.PACK PO SCH (09:06)
[2022-12-15] MEDS: prednisoLONE 1% OPHTHALMIC SUSPN 5 ML OP SCH ×3 (09:11→23:20)
[2022-12-15] MEDS: TIMOLOL MALEATE 0.5% OPHTHALMIC DROPS 5 ML RIGHT EYE SCH ×3 (09:12→23:19)
[2022-12-15] MEDS: DORZOLAMIDE HCL/TIMOLOL MAL. 10 ML EYE DROPS (COSOPT) RIGHT EYE SCH ×2 (09:13→23:19)
[2022-12-15] MEDS: TOBRAMYCIN SULFATE 0.3% EYE DROPS 5 ML OP SCH ×2 (09:14→23:20)
[2022-12-15] MEDS: LIFITEGRAST 5% OP SCH ×2 (09:15→21:00)
[2022-12-15] MEDS: KCL 20 mEq in D5/0.45NS 1000mL 1,000 ML IV SCH ×2 (09:29→18:00)
--- NOTE | 2022-12-15 12:08 | NUR ---
RT NOTES 1158 DR HART PLACED PT ON 2 L NC DUE TO DESATURATION. WILL MONITOR. SAT 99% Addendum: 12/15/22 at 1209 by Yuko Purcell RT Amended: Links added.
--- NOTE | 2022-12-15 12:58 | NUR ---
07 receievd report from night RN seen patient resting on bed on 2 l oxygen via NC not on distress. patient is alert awake and oreinted. 1200 psychiatric consult thru telehealth completed and dr gagnon is signing off, no indication for any psych issues, patient denies suicidal thought and denies depression and anxiety and refused to be put on antidepressant. 1300 eating lunch with good appetite.
--- NOTE | 2022-12-15 18:40 | NUR ---
Transfer Received patient from [facility]IL WELL DRILL[facility], Patient in bed resting. A/O x4, [place] speaking. Patient breathing even and unlabored on NC 3LPM, uses Bipap at night. Patient has PICC to Right arm patent on infusion pump. Patient on Puree diet and needs to be fed. Patient on bedrest with Hernández Cath draining yellow urine to gravity. Call light within reach. All needs met, bed is locked in lowest position, will continue with plan of care.
--- NOTE | 2022-12-15 19:12 | NUR ---
[address] clerk Krysten; transferred patient to room 135 A told the WANDA turner to call the family marcio to make her aware about the new room of the patient. patient is not on distress.
[2022-12-15] MEDS: ENOXAPARIN SODIUM 40 MG/0.4 ML SYRINGE SUBCUT SCH (23:17)
[2022-12-15] MEDS: LATANOPROST 2.5 ML DROPS (XALATAN) OP SCH (23:20)
[2022-12-16] VITALS: BP_SYST 133
[2022-12-16 04:00] VITALS: BP_SYST 127
[2022-12-16] MEDS: hydrALAZINE HCL 25 MG TABLET PO SCH ×3 (06:38→22:00)
[2022-12-16] MEDS: KCL 20 mEq in D5/0.45NS 1000mL 1,000 ML IV SCH (06:45)
--- NOTE | 2022-12-16 06:45 | NUR ---
Miss Moffett has been assessed as indicate. She denies pain. Hernández has adequate clear yellow output. Picc line is patent and the dressing is CDI. She has been on Bipap at HS and tolerates it well. She was given snacks for dinner. This she tolerated well and appreciated. VSS 2LNC when off bipap with adequate saturation. She is presently resting quietly with no s/s of distress or discomfort
--- NOTE | 2022-12-16 07:15 | NUR ---
Hand off has been given to Lore
[2022-12-16] MEDS: MILK OF MAGNESIA 30 ML UDC PO SCH ×2 (09:00→21:00)
[2022-12-16] MEDS: acetaZOLAMIDE 250 MG TABLET (DIAMOX) PO SCH (09:00)
[2022-12-16] MEDS: POLYETHYLENE GLYCOL 3350, 17 GM/ POWD.PACK PO SCH (09:00)
[2022-12-16] MEDS: BARICITINIB -Non-Formulary 2 MG TABLET PO SCH (09:00)
[2022-12-16] MEDS: FUROSEMIDE 20 MG TABLET PO SCH (09:00)
[2022-12-16] MEDS: PANTOPRAZOLE SODIUM 40 MG/VIAL (PROTONIX) IVP SCH (09:00)
[2022-12-16] MEDS: CHOLECALCIFEROL (VITAMIN D3) 2,000 UNIT TABLET PO SCH (09:00)
[2022-12-16] MEDS: DEXAMETHASONE SOD PHOSPHATE 4 MG/ML VIAL IVP SCH (09:00)
[2022-12-16] MEDS: DOCUSATE SODIUM 100 MG CAPSULE PO SCH (09:00)
[2022-12-16] MEDS: LIFITEGRAST 5% OP SCH ×2 (09:00→21:00)
[2022-12-16] MEDS: CEFEPIME 2 GM in D5W 100 ML IV SCH (09:17)
[2022-12-16] MEDS: AMIODARONE HCL 200 MG TABLET PO SCH (09:19)
[2022-12-16] MEDS: CARVEDILOL 3.125 MG TABLET (COREG) PO SCH (09:20)
[2022-12-16] MEDS: ASPIRIN 81 MG TABLET(ECOTRIN) PO SCH (09:21)
[2022-12-16] MEDS: MAGNESIUM OXIDE 400 MG TABLET PO SCH (09:22)
[2022-12-16] MEDS: prednisoLONE 1% OPHTHALMIC SUSPN 5 ML OP SCH ×2 (09:24→16:54)
[2022-12-16] MEDS: DORZOLAMIDE HCL/TIMOLOL MAL. 10 ML EYE DROPS (COSOPT) RIGHT EYE SCH (09:25)
[2022-12-16] MEDS: TOBRAMYCIN SULFATE 0.3% EYE DROPS 5 ML OP SCH ×2 (09:26→21:18)
[2022-12-16] MEDS: TIMOLOL MALEATE 0.5% OPHTHALMIC DROPS 5 ML RIGHT EYE SCH ×2 (09:27→16:53)
[2022-12-16 12:00] VITALS: BP_SYST 122
[2022-12-16 16:54] VITALS: BP_SYST 124
--- NOTE | 2022-12-16 19:00 | NUR ---
pt alert, oriented to self, event and time. ivf infusing as ordered through PICC. no c/o pain or sob. refused a few AM meds. held hydralazine @1400. fall precautions in place, call jorge in reach. 2L NC.
[2022-12-16 20:00] VITALS: BP_SYST 119
[2022-12-17] MEDS: TIMOLOL MALEATE 0.5% OPHTHALMIC DROPS 5 ML RIGHT EYE SCH ×4 (00:01→22:56)
[2022-12-17] MEDS: CEFEPIME 2 GM in D5W 100 ML IV SCH (00:01)
[2022-12-17] MEDS: LATANOPROST 2.5 ML DROPS (XALATAN) OP SCH ×2 (00:01→22:56)
[2022-12-17] MEDS: prednisoLONE 1% OPHTHALMIC SUSPN 5 ML OP SCH ×4 (00:02→22:57)
[2022-12-17] MEDS: CARVEDILOL 3.125 MG TABLET (COREG) PO SCH ×3 (00:03→22:56)
[2022-12-17] MEDS: ENOXAPARIN SODIUM 40 MG/0.4 ML SYRINGE SUBCUT SCH ×2 (00:03→22:54)
[2022-12-17] MEDS: MAGNESIUM OXIDE 400 MG TABLET PO SCH ×3 (00:03→22:54)
[2022-12-17] MEDS: DORZOLAMIDE HCL/TIMOLOL MAL. 10 ML EYE DROPS (COSOPT) RIGHT EYE SCH ×3 (00:04→22:57)
[2022-12-17] MEDS: KCL 20 mEq in D5/0.45NS 1000mL 1,000 ML IV SCH ×2 (00:07→16:12)
[2022-12-17 01:06] VITALS: BP_SYST 124
[2022-12-17] MEDS: hydrALAZINE HCL 25 MG TABLET PO SCH ×3 (06:24→22:55)
[2022-12-17 06:42] LABS: BASOPHILS % (AUTO) 0.1 % (0.0-2.0); EOSINOPHILS # (AUTO) 0.3 K/uL (0.0-0.4); EOSINOPHILS % (AUTO) 3.7 % (0.0-4.0); HEMATOCRIT 27.2 % (36-48); HEMOGLOBIN 8.6 g/dL (12.0-16.0); LYMPHOCYTES # (AUTO) 2.4 K/uL (1.0-5.5); LYMPHOCYTES % (AUTO) 28.7 % (20.5-51.5); MEAN CORPUSCULAR HEMOGLOBIN 28 pg (27-31); MEAN CORPUSCULAR HGB CONC 32 % (32-36); MEAN CORPUSCULAR VOLUME 87 fL (79.0-98.0); MONOCYTES # (AUTO) 0.7 K/uL (0.0-1.0); MONOCYTES % (AUTO) 8.7 % (1.7-9.3); NEUTROPHILS # (AUTO) 4.9 K/uL (1.8-7.7); NEUTROPHILS % (AUTO) 58.8 % (40.0-70.0); PLATELET COUNT (AUTO) 285 K/uL (130-430); RED BLOOD CELL COUNT(AUTO) 3.11 MIL/uL (4.2-6.2); RED CELL DISTRIBUTION WIDTH 17.6 % (9.0-15.0); WHITE BLOOD COUNT (AUTO) 8.4 K/uL (4.8-10.8)
--- NOTE | 2022-12-17 06:45 | NUR ---
Miss Moffett has been assessed as indicated. She continues to deny pain. She refuses water insisting that she drinks juice or tea only. Hernández remains in place with adequate clear yellow output. R arm PICC remains in place and flushes well. Her skin has been noted to be intact. Foam dressing on her coccyx is prophylactic. She was placed on Bipap at HS and she tolerated this well. Her conversation is not always easy to follow. However, she is pleasant and follow commands she makes no attempts to ambulate without assitance. She is presently resting quietly with no s/s of distress or discomfort
[2022-12-17 07:11] LABS: CALCIUM 9.4 mg/dL (8.4-11.0); CREATININE 0.93 mg/dL (0.55-1.30)
--- NOTE | 2022-12-17 07:35 | NUR ---
RT NOTE: 0735 Patient found awake, off BiPAP at this time and on 2LPM nasal cannula. No resp distress noted. BiPAP is on stby.
--- NOTE | 2022-12-17 07:53 | NUR ---
handoff has been given to Lourdes
[2022-12-17] MEDS: LIFITEGRAST 5% OP SCH ×2 (09:00→21:00)
[2022-12-17 09:10] VITALS: BP_SYST 125
[2022-12-17] MEDS: POLYETHYLENE GLYCOL 3350, 17 GM/ POWD.PACK PO SCH (10:35)
[2022-12-17] MEDS: MILK OF MAGNESIA 30 ML UDC PO SCH ×2 (10:35→22:54)
[2022-12-17] MEDS: PANTOPRAZOLE SODIUM 40 MG/VIAL (PROTONIX) IVP SCH (10:36)
[2022-12-17] MEDS: DEXAMETHASONE SOD PHOSPHATE 4 MG/ML VIAL IVP SCH (10:36)
[2022-12-17] MEDS: AMIODARONE HCL 200 MG TABLET PO SCH (10:37)
[2022-12-17] MEDS: FUROSEMIDE 20 MG TABLET PO SCH (10:38)
[2022-12-17] MEDS: DOCUSATE SODIUM 100 MG CAPSULE PO SCH (10:39)
[2022-12-17] MEDS: ASPIRIN 81 MG TABLET(ECOTRIN) PO SCH (10:39)
[2022-12-17] MEDS: CHOLECALCIFEROL (VITAMIN D3) 2,000 UNIT TABLET PO SCH (10:39)
[2022-12-17] MEDS: BARICITINIB -Non-Formulary 2 MG TABLET PO SCH (10:40)
[2022-12-17 12:45] VITALS: BP_SYST 121
[2022-12-17] MEDS: acetaZOLAMIDE 250 MG TABLET (DIAMOX) PO SCH (13:10)
--- NOTE | 2022-12-17 13:38 | NUR ---
Nutrition F/U RD reviewed pts current EMR including diet hx, physician notes, nursing notes, pertinent labs/meds/procedures, care trends and care activity. Subjective Information 12/13: Pt extubated successfully RD rounded to pt room and tried to s/w pt but she was sleeping soundly. RD s/w RN and she attested that pt is recently more confused and is having trouble swallowing pills. Reportedly she does fine with her meals, as long as she is fed. RD asked about GI symptoms and pt has had 3 BMs yesterday and now does not want to take any more stool softeners. RN still thinks its appropriate so pt is not straining at all. Per EMR review: abd soft w/ active bowel sounds; Vega: 10. Pt is likely meeting nutritional needs at this time. Current Diet Order/Nutrition Support Puree x 2 days % PO intake Good avg of 79% x 6 meal records Last BM 12/17 x 1 Estimated Energy Expenditure (kcals/day) 0099-7813 kcal (20-25 ABW [78kg] d/t BMI) Estimated Protein Required (g/day) 62-78 (0.8-1 g/kg ABW d/t GERIAT maintenance) Estimated Fluid Required (l/day) 2-2.3 (1 mL/kcal for GERIAT maintenance) Problem/Etiology/Signs/Symptoms * Risk for malnutrition in the context of morbid obesity R/T suspected unrestricted diet FERRULER AEB BMI 48.3 kg/m2 and 230% of IBW *ongoing. Expected Outcomes/Goals * Monitor EN support w/ goal of pt meeting >85% of estimated nutritional needs, nutrition-related labs trending WNL, skin integrity w/ wt. maintenance. Dietitian Recommendations * Continue puree diet per MILLWRIGHT APPRENTICE * Continue 1:1 feeding Follow up * Moderate risk: f/u in 3-5 days GS, MPH, RD
--- NOTE | 2022-12-17 13:39 | NUR ---
Dietitian Recommendations * Continue puree diet per INSPECTOR HAIRSPRING TRUING * Continue 1:1 feeding GS, MPH, RD Please refer to Nutrition F/U for further details. Thanks!
--- NOTE | 2022-12-17 15:24 | NUR ---
PHYSICAL THERAPY CO-SIGN The Physical Therapy Progress Notes documented by Dicer Operator have been reviewed. Reviewed/Co-Signed by: Kranthi Alva Documentation Done by:LIZZY AG Addendum: 12/17/22 at 1524 by Kranthi Alva PT Amended: Links added.
[2022-12-17 16:30] VITALS: BP_SYST 129
[2022-12-17 20:00] VITALS: BP_SYST 160
[2022-12-18] VITALS: BP_SYST 153
--- NOTE | 2022-12-18 06:30 | NUR ---
Miss Moffett has been assessed as indicated. She continues to deny pain. Hernández and PICC line both function well. She was placed on Bipap at HS she was assisted with dinner and completed 100%. she has been encouraged to drink water and less grape juice. She is resting quietly at this time with no s/s of distress or discomfort
[2022-12-18] MEDS: hydrALAZINE HCL 25 MG TABLET PO SCH ×3 (06:52→21:32)
[2022-12-18] MEDS: KCL 20 mEq in D5/0.45NS 1000mL 1,000 ML IV SCH (06:53)
--- NOTE | 2022-12-18 07:25 | NUR ---
RT NOTE: 0725 Patient asleep, easily arousable. BiPAP taken off at this time. Left patient on room air, vitals are as follows: 64 HR, 18 RR, and 99% SpO2. BiPAP and O2 via nasal cannula on standby.
--- NOTE | 2022-12-18 07:35 | NUR ---
Handoff has been given to Lourdes
[2022-12-18] MEDS: POLYETHYLENE GLYCOL 3350, 17 GM/ POWD.PACK PO SCH (09:00)
[2022-12-18] MEDS: LIFITEGRAST 5% OP SCH ×2 (09:00→21:00)
[2022-12-18] MEDS: MILK OF MAGNESIA 30 ML UDC PO SCH ×2 (09:00→21:00)
[2022-12-18 09:15] VITALS: BP_SYST 116
[2022-12-18 10:03] LABS: BASOPHILS % (AUTO) 0.1 % (0.0-2.0); CALCIUM 9.2 mg/dL (8.4-11.0); CREATININE 0.77 mg/dL (0.55-1.30); EOSINOPHILS % (AUTO) 0.2 % (0.0-4.0); HEMATOCRIT 26.9 % (36-48); HEMOGLOBIN 8.7 g/dL (12.0-16.0); LYMPHOCYTES # (AUTO) 0.9 K/uL (1.0-5.5); LYMPHOCYTES % (AUTO) 11.2 % (20.5-51.5); MEAN CORPUSCULAR HEMOGLOBIN 28 pg (27-31); MEAN CORPUSCULAR HGB CONC 32 % (32-36); MEAN CORPUSCULAR VOLUME 86 fL (79.0-98.0); MONOCYTES # (AUTO) 0.6 K/uL (0.0-1.0); MONOCYTES % (AUTO) 6.9 % (1.7-9.3); NEUTROPHILS # (AUTO) 6.6 K/uL (1.8-7.7); PLATELET COUNT (AUTO) 267 K/uL (130-430); RED BLOOD CELL COUNT(AUTO) 3.11 MIL/uL (4.2-6.2); RED CELL DISTRIBUTION WIDTH 17.7 % (9.0-15.0); WHITE BLOOD COUNT (AUTO) 8.1 K/uL (4.8-10.8)
[2022-12-18 10:08] LABS: ALBUMIN 2.1 g/dL (3.4-4.8); TOTAL BILIRUBIN 0.3 mg/dL (0.0-1.0)
[2022-12-18] MEDS: PANTOPRAZOLE SODIUM 40 MG/VIAL (PROTONIX) IVP SCH (10:19)
[2022-12-18] MEDS: DEXAMETHASONE SOD PHOSPHATE 4 MG/ML VIAL IVP SCH (10:20)
[2022-12-18] MEDS: FUROSEMIDE 20 MG TABLET PO SCH (10:21)
[2022-12-18] MEDS: BARICITINIB -Non-Formulary 2 MG TABLET PO SCH (10:21)
[2022-12-18] MEDS: CARVEDILOL 3.125 MG TABLET (COREG) PO SCH ×2 (10:22→21:33)
[2022-12-18] MEDS: CHOLECALCIFEROL (VITAMIN D3) 2,000 UNIT TABLET PO SCH (10:22)
[2022-12-18] MEDS: ASPIRIN 81 MG TABLET(ECOTRIN) PO SCH (10:23)
[2022-12-18] MEDS: AMIODARONE HCL 200 MG TABLET PO SCH (10:23)
[2022-12-18] MEDS: MAGNESIUM OXIDE 400 MG TABLET PO SCH ×2 (10:24→21:33)
[2022-12-18] MEDS: prednisoLONE 1% OPHTHALMIC SUSPN 5 ML OP SCH ×3 (10:26→21:35)
[2022-12-18] MEDS: TIMOLOL MALEATE 0.5% OPHTHALMIC DROPS 5 ML RIGHT EYE SCH ×3 (10:26→21:34)
[2022-12-18] MEDS: DORZOLAMIDE HCL/TIMOLOL MAL. 10 ML EYE DROPS (COSOPT) RIGHT EYE SCH ×2 (10:27→21:35)
[2022-12-18] MEDS: DOCUSATE SODIUM 100 MG CAPSULE PO SCH (10:29)
[2022-12-18 11:27] LABS: NEUTROPHILS % (AUTO) 81.6 % (40.0-70.0)
[2022-12-18] MEDS: acetaZOLAMIDE 250 MG TABLET (DIAMOX) PO SCH (12:24)
[2022-12-18 13:37] VITALS: BP_SYST 152
--- NOTE | 2022-12-18 15:17 | NUR ---
PHYSICAL THERAPY CO-SIGN The Physical Therapy Progress Notes documented by Licensed Optician have been reviewed. Reviewed/Co-Signed by: Kranthi Alva Documentation Done by:LIZZY AG Addendum: 12/18/22 at 1517 by Kranthi Alva PT Amended: Links added.
--- NOTE | 2022-12-18 16:18 | NUR ---
Spoke w/ Christina at [facility] [phone]-she has requested authorization from [facility]-they have not responded to her request at this time.
[2022-12-18 17:31] VITALS: BP_SYST 140
[2022-12-18 20:00] VITALS: BP_SYST 152
[2022-12-18] MEDS: ENOXAPARIN SODIUM 40 MG/0.4 ML SYRINGE SUBCUT SCH (21:34)
[2022-12-18] MEDS: LATANOPROST 2.5 ML DROPS (XALATAN) OP SCH (21:35)
[2022-12-19] MEDS: hydrALAZINE HCL 25 MG TABLET PO SCH ×2 (06:00→14:17)
[2022-12-19] MEDS: KCL 20 mEq in D5/0.45NS 1000mL 1,000 ML IV SCH ×2 (07:08→14:19)
--- NOTE | 2022-12-19 07:50 | NUR ---
Handoff has been given to Nile
--- NOTE | 2022-12-19 08:01 | NUR ---
RT NOTES 0800 PT TAKEN OFF BIPAP, SATURATION 100% HR 60. PT TOLERATING WELL. Addendum: 12/19/22 at 0803 by Yuko Purcell RT Amended: Links added.
[2022-12-19 08:44] VITALS: BP_SYST 167
[2022-12-19] MEDS: LIFITEGRAST 5% OP SCH (09:00)
[2022-12-19] MEDS: DEXAMETHASONE SOD PHOSPHATE 4 MG/ML VIAL IVP SCH (09:01)
[2022-12-19] MEDS: MILK OF MAGNESIA 30 ML UDC PO SCH (09:01)
[2022-12-19] MEDS: MAGNESIUM OXIDE 400 MG TABLET PO SCH (09:02)
[2022-12-19] MEDS: CHOLECALCIFEROL (VITAMIN D3) 2,000 UNIT TABLET PO SCH (09:02)
[2022-12-19] MEDS: PANTOPRAZOLE SODIUM 40 MG/VIAL (PROTONIX) IVP SCH (09:02)
[2022-12-19] MEDS: AMIODARONE HCL 200 MG TABLET PO SCH (09:03)
[2022-12-19] MEDS: DOCUSATE SODIUM 100 MG CAPSULE PO SCH (09:03)
[2022-12-19] MEDS: ASPIRIN 81 MG TABLET(ECOTRIN) PO SCH (09:03)
[2022-12-19] MEDS: FUROSEMIDE 20 MG TABLET PO SCH (09:04)
[2022-12-19] MEDS: CARVEDILOL 3.125 MG TABLET (COREG) PO SCH (09:05)
[2022-12-19] MEDS: acetaZOLAMIDE 250 MG TABLET (DIAMOX) PO SCH (09:05)
[2022-12-19] MEDS: POLYETHYLENE GLYCOL 3350, 17 GM/ POWD.PACK PO SCH (09:05)
[2022-12-19] MEDS: prednisoLONE 1% OPHTHALMIC SUSPN 5 ML OP SCH ×2 (09:36→14:20)
[2022-12-19] MEDS: DORZOLAMIDE HCL/TIMOLOL MAL. 10 ML EYE DROPS (COSOPT) RIGHT EYE SCH (09:38)
[2022-12-19] MEDS: TIMOLOL MALEATE 0.5% OPHTHALMIC DROPS 5 ML RIGHT EYE SCH ×2 (09:38→14:20)
--- NOTE | 2022-12-19 10:52 | NUR ---
PHYSICAL THERAPY CO-SIGN The Physical Therapy Progress Notes documented by Cage Tender have been reviewed. Reviewed/Co-Signed by: Kranthi Alva Documentation Done by:LIZZY AG Addendum: 12/19/22 at 1053 by Kranthi Alva PT Amended: Links added.
[2022-12-19 11:53] VITALS: BP_SYST 158
--- NOTE | 2022-12-19 12:23 | NUR ---
faxed patient information to [facility]) phone#[phone] will follow up if they're accepting
[2022-12-19 14:12] VITALS: BP_SYST 171
[2022-12-19] MEDS: hydrALAZINE HCL 20 MG/ML VIAL IVP PRN (14:18)
--- NOTE | 2022-12-19 15:18 | NUR ---
faxed patient order to [employer] phone#[phone] Rain from [employer] will set ambulance for pt. mcgrath
--- NOTE | 2022-12-19 16:08 | NUR ---
pt to be discharge to [facility] bed#20 phone[facility][phone] [facility] scrap picker between 6:00PM-7:00PM phone#[phone] Confirmation#[id number] packet brought out by to give it to the nurse
[2022-12-19 16:51] VITALS: BP_SYST 143
--- NOTE | 2022-12-19 17:00 | NUR ---
The primary nurse(technical writer) called [facility], and gave report to Yamini MUÑOZ. Hernández catheter discontinued, Picc line jeanna removed, with pressure dressing placed.
[2022-12-19 17:05] VITALS: BP_SYST 143
== END 2022-12-19 18:50 | DRG 870 ==
LOC: SED 14:44 → SIC 19:55 → STU 12-15 18:34
PROVIDERS: ADMIT Family Medicine; ATTEND Family Medicine
PROC: 5A1955Z Respiratory Ventilation, Greater than 96 Consecutive Hours (ICD-10-PCS; principal; 2022-12-03)
PROC: 0BH17EZ Insertion of Endotracheal Airway into Trachea, Via Natural or Artificial Opening (ICD-10-PCS; 2022-12-03)
PROC: XW033E5 Introduction of Remdesivir Anti-infective into Peripheral Vein, Percutaneous Approach, New Technology Group 5 (ICD-10-PCS; 2022-12-04)
PROC: 5A09357 Assistance with Respiratory Ventilation, Less than 24 Consecutive Hours, Continuous Positive Airway Pressure (ICD-10-PCS; 2022-12-14)
PROC: 5A09357 Assistance with Respiratory Ventilation, Less than 24 Consecutive Hours, Continuous Positive Airway Pressure (ICD-10-PCS; 2022-12-15)
PROC: 5A09357 Assistance with Respiratory Ventilation, Less than 24 Consecutive Hours, Continuous Positive Airway Pressure (ICD-10-PCS; 2022-12-16)
PROC: 5A09357 Assistance with Respiratory Ventilation, Less than 24 Consecutive Hours, Continuous Positive Airway Pressure (ICD-10-PCS; 2022-12-18)
DX: A41.89 Other specified sepsis (principal); U07.1 COVID-19; J96.02 Acute respiratory failure with hypercapnia; J12.82 Pneumonia due to coronavirus disease 2019; J96.01 Acute respiratory failure with hypoxia; J15.1 Pneumonia due to Pseudomonas; Z68.42 Body mass index [BMI] 45.0-49.9, adult; D61.818 Other pancytopenia; F03.90 Unspecified dementia, unspecified severity, without behavioral disturbance, psychotic disturbance, mood disturbance, and anxiety; I50.9 Heart failure, unspecified; I48.91 Unspecified atrial fibrillation; K21.9 Gastro-esophageal reflux disease without esophagitis; E66.9 Obesity, unspecified; I11.0 Hypertensive heart disease with heart failure; I25.2 Old myocardial infarction; Z86.74 Personal history of sudden cardiac arrest; Z87.891 Personal history of nicotine dependence; Z95.810 Presence of automatic (implantable) cardiac defibrillator; Z88.8 Allergy status to other drugs, medicaments and biological substances; Z79.82 Long term (current) use of aspirin; Z79.899 Other long term (current) drug therapy
CPT/HCPCS: 36415; 36600; 70450-TC; 71045; 76376; 80048; 80053; 80076; 82550; 82803-TC; 83605; 83735; 83880; 84484; 85025; 85379; 85384; 85610-TC; 85730-TC; 86140; 87040; 87070-TC; 87081; 87101; 87205-TC; 92610-GN; 93005; 93306; 94002; 94003; 94640; 94660; 94760; 96365; 96375; 97110-GP; 97163-GP; 99291; C9113; G0378; J0360; J0456; J0692; J0696; J1100; J1644; J1650; J2543; J2704; J3370; J3480; J7050; J7060; J7613; U0003

== ENCOUNTER 2023-01-21 08:32 | Inpatient (IN) | payer OTHER, MEDICAID ==
[~2023-01-21] VITALS: Ht 167.6 cm; Wt 136.1 kg
[2023-01-21] VITALS (15 sets, daily range): BP systolic 72–140
[~2023-01-21 08:32] MED LIST changes: -HYDR100T25 PO; -LOSA100T23 PO
--- NOTE | 2023-01-21 08:48 | NUR ---
Placed in room 06 . Placed on telecom field technician, blood pressure machine and pulse oximeter. To gown for exam. Side rails up. Report given to WANDA HILL.
--- NOTE | 2023-01-21 09:10 | NUR ---
MD in to see patient. Patient placed on BIPAP while evaluating necessary care. Dificult getting IV at this time. Contacted RN Hole Filler to request PICC line placement.
--- NOTE | 2023-01-21 09:11 | NUR ---
rt notes 0911 Pt came in from [facility] on 15L NRB, pt arousable. RT placed pt on AVAPS 14, 500VT, EPAP 5 70% FIO2. 0950 ABG done on bipap done, CO2 101. ED MD Quintero ordered pt to get intubated.
[2023-01-21] MEDS ORDERED: MEROPENEM 1 GM IVPB PREMIX 50 ML IV ONE (09:15)
[2023-01-21] MEDS ORDERED: VANCOMYCIN HCL 1,000 MG in NS 250 ML IV ONE (09:15)
--- NOTE | 2023-01-21 10:01 | NUR ---
Have traken 2 hours to strat IV and patient has been on BIPAP during this time. ABG is poor so we are intubating the patient now.
[2023-01-21 10:11] LABS: CALCIUM 10.5 mg/dL (8.4-11.0); CREATININE 0.88 mg/dL (0.55-1.30)
[2023-01-21] MEDS ORDERED: ETOMIDATE 20 MG/ 10 ML VIAL (AMIDATE) IVP ONE (10:15)
[2023-01-21] MEDS ORDERED: SUCCINYLCHOLINE CHLORIDE 20 MG/ML(QUELICIN) IVP ONE (10:15)
[2023-01-21 10:16] LABS: ALBUMIN 2.8 g/dL (3.4-4.8); TOTAL BILIRUBIN 0.3 mg/dL (0.0-1.0)
--- NOTE | 2023-01-21 10:20 | NUR ---
RT NOTES 1017 BAGGED PT COMPA 15L BVM. ORAL SXN READY. 1020 PT GOT INBUTAED BY MD ENCISO. CO2 DETECTOR COLOR CHANGED TO YELLOW. AVINASH BS HEARD. PT PLACED ON AC16,500VT PEEP +5 100% FIO2, 7.5/22CM LL. SPUTUM SAMPLE SENT TO LAB. SATURATION 100%. WILL CONT TO MONITOR PT.
[2023-01-21] MEDS ORDERED: PROPOFOL DRIP 100 ML IV ONE ×2 (10:30→14:42)
--- NOTE | 2023-01-21 11:18 | NUR ---
RODRI EPPS CAREGIVER FOR STATUS UPDATE
[2023-01-21 12:09] LABS: BASOPHILS % (AUTO) 0.6 % (0.0-2.0); EOSINOPHILS % (AUTO) 0.1 % (0.0-4.0); HEMATOCRIT 34.2 % (36-48); HEMOGLOBIN 10.5 g/dL (12.0-16.0); LYMPHOCYTES # (AUTO) 0.7 K/uL (1.0-5.5); LYMPHOCYTES % (AUTO) 9.9 % (20.5-51.5); MEAN CORPUSCULAR HEMOGLOBIN 28 pg (27-31); MEAN CORPUSCULAR HGB CONC 31 % (32-36); MEAN CORPUSCULAR VOLUME 92 fL (79.0-98.0); MONOCYTES # (AUTO) 0.4 K/uL (0.0-1.0); MONOCYTES % (AUTO) 6.1 % (1.7-9.3); NEUTROPHILS % (AUTO) 83.3 % (40.0-70.0); PLATELET COUNT (AUTO) 180 K/uL (130-430); RED BLOOD CELL COUNT(AUTO) 3.71 MIL/uL (4.2-6.2); RED CELL DISTRIBUTION WIDTH 18.7 % (9.0-15.0); WHITE BLOOD COUNT (AUTO) 7.2 K/uL (4.8-10.8)
[2023-01-21 12:29] LABS: PROTHROMBIN TIME 10.7 SECS (9.5-12.5)
[2023-01-21] MEDS ORDERED: BISACODYL 10 MG/SUPPOSITORY RC PRN (14:00)
--- NOTE | 2023-01-21 14:00 | NUR ---
Patient will be admitted to care of Dr. Rodriguez in ICU. Admitted to ICU unit. Will go to room 4. Belongings list completed. Complete and up to date summary report printed. SBAR report to be given at bedside with opportunity for questions. Gave report to Kelvin in ICU and all questions were answered at bedside.
[2023-01-21] MEDS ORDERED: ACETAMINOPHEN 325 MG TABLET NG PRN (14:15)
[2023-01-21] MEDS ORDERED: LevALBUTEROL HCL 1.25 MG/0.5 ML *CONC.* VIAL.NEB (XOPENEX CONC.) INH PRN (14:15)
[2023-01-21] MEDS ORDERED: LevALBUTEROL HCL 1.25 MG/0.5 ML *CONC.* VIAL.NEB (XOPENEX CONC.) INH SCH (15:00)
[2023-01-21] MEDS ORDERED: levalbuterol HCL 0.63 MG/3 ML VIAL.NEB INH PRN (15:45)
--- NOTE | 2023-01-21 16:16 | NUR ---
Patient got small IV placed at this time. Patient is more responsive so had to implement Propofol titrated for patient. Completed review of Med Rec and prepared patient to go to ICU.
[2023-01-21] MEDS: prednisoLONE 1% OPHTHALMIC SUSPN 5 ML OP SCH ×2 (16:20→21:11)
[2023-01-21] MEDS: TOBRAMYCIN SULFATE 0.3% EYE DROPS 5 ML OP SCH ×3 (16:21→22:50)
[2023-01-21] MEDS: TIMOLOL MALEATE 0.5% OPHTHALMIC DROPS 5 ML RIGHT EYE SCH ×2 (16:22→21:13)
[2023-01-21] MEDS: D5NS 1,000 ML IV SCH ×2 (16:23→22:53)
[2023-01-21] MEDS ORDERED: NS 250 ML IV ONE (17:00)
[2023-01-21] MEDS: PROPOFOL DRIP 100 ML IV PRN ×2 (18:27→21:47)
[2023-01-21 18:58] LABS: INR 1.1 (0.8-1.2); PROTHROMBIN TIME 11.1 SECS (9.5-12.5)
[2023-01-21] MEDS: POTASSIUM CHLORIDE 20 MEQ TAB.PRT.SR PO SCH (21:00)
[2023-01-21] MEDS ORDERED: LIFITEGRAST LEFT EYE SCH (21:00)
[2023-01-21] MEDS ORDERED: CARVEDILOL 3.125 MG TABLET (COREG) PO SCH (21:00)
[2023-01-21] MEDS ORDERED: TOBRAMYCIN/DEXAMETHASONE Non-Formulary 3.5 GM EYE OINT. OP SCH (21:00)
[2023-01-21] MEDS: LATANOPROST 2.5 ML DROPS (XALATAN) OP SCH (21:13)
[2023-01-21] MEDS: DORZOLAMIDE HCL/TIMOLOL MAL. 10 ML EYE DROPS (COSOPT) RIGHT EYE SCH (21:13)
[2023-01-21] MEDS: VANCOMYCIN HCL 1,250 MG in NS 250 ML IV SCH (21:17)
[2023-01-21] MEDS: ENOXAPARIN SODIUM 40 MG/0.4 ML SYRINGE SUBCUT SCH (21:17)
[2023-01-21] MEDS: MEROPENEM 500 MG in NS 50 ML IV SCH (22:49)
[2023-01-21] MEDS: levalbuterol HCL 0.63 MG/3 ML VIAL.NEB INH SCH (23:14)
[2023-01-22] VITALS (31 sets, daily range): BP systolic 126–176
[2023-01-22] MEDS: PROPOFOL DRIP 100 ML IV PRN ×8 (01:25→23:15)
[2023-01-22] MEDS: TOBRAMYCIN SULFATE 0.3% EYE DROPS 5 ML OP SCH ×6 (02:43→23:02)
[2023-01-22 05:13] LABS: BASOPHILS % (AUTO) 0.2 % (0.0-2.0); EOSINOPHILS % (AUTO) 0.1 % (0.0-4.0); HEMOGLOBIN 8.7 g/dL (12.0-16.0); LYMPHOCYTES % (AUTO) 7.5 % (20.5-51.5); MEAN CORPUSCULAR HEMOGLOBIN 28 pg (27-31); MEAN CORPUSCULAR HGB CONC 31 % (32-36); MEAN CORPUSCULAR VOLUME 91 fL (79.0-98.0); MONOCYTES # (AUTO) 0.7 K/uL (0.0-1.0); MONOCYTES % (AUTO) 5.2 % (1.7-9.3); PLATELET COUNT (AUTO) 187 K/uL (130-430); RED BLOOD CELL COUNT(AUTO) 3.09 MIL/uL (4.2-6.2); RED CELL DISTRIBUTION WIDTH 17.6 % (9.0-15.0); WHITE BLOOD COUNT (AUTO) 12.7 K/uL (4.8-10.8)
[2023-01-22] MEDS: MEROPENEM 500 MG in NS 50 ML IV SCH ×3 (05:14→21:52)
[2023-01-22 05:44] LABS: CALCIUM 9.5 mg/dL (8.4-11.0); CREATININE 0.79 mg/dL (0.55-1.30)
--- NOTE | 2023-01-22 06:40 | NUR ---
HIGH ALERT NOTE: Called Dr. Kaur back at 0630 identified within the medical roster to verify physician authenticity. For potassium of 2.8, please see EMAR for new order.
[2023-01-22] MEDS ORDERED: POTASSIUM CHLORIDE 20 MEQ/PKT PACKET PO ONE (06:45)
[2023-01-22] MEDS ORDERED: KCL 40 mEq in 100 mL (PREMIX) 100 ML IV ONE (06:45)
[2023-01-22] MEDS: hydrALAZINE HCL 20 MG/ML VIAL IVP PRN ×2 (07:00→23:01)
[2023-01-22] MEDS: VANCOMYCIN HCL 1,250 MG in NS 250 ML IV SCH ×2 (08:59→20:04)
[2023-01-22] MEDS: FERROUS SULFATE 300 MG/5 ML UDC PO SCH (09:06)
[2023-01-22] MEDS: CHOLECALCIFEROL (VITAMIN D3) 2,000 UNIT TABLET PO SCH (09:06)
[2023-01-22] MEDS: PANTOPRAZOLE SODIUM 40 MG TAB PO SCH (09:06)
[2023-01-22] MEDS: CARVEDILOL 25 MG TABLET (COREG) PO SCH ×2 (09:07→20:06)
[2023-01-22] MEDS: ASPIRIN 81 MG TAB.CHEW NG SCH (09:08)
[2023-01-22] MEDS: DOCUSATE SODIUM 100 MG CAPSULE PO SCH (09:08)
[2023-01-22] MEDS: AMIODARONE HCL 200 MG TABLET NG SCH (09:08)
[2023-01-22] MEDS: POTASSIUM CHLORIDE 20 MEQ TAB.PRT.SR PO SCH ×2 (09:08→20:06)
[2023-01-22] MEDS: TIMOLOL MALEATE 0.5% OPHTHALMIC DROPS 5 ML RIGHT EYE SCH ×3 (09:09→20:04)
[2023-01-22] MEDS: prednisoLONE 1% OPHTHALMIC SUSPN 5 ML OP SCH ×3 (09:09→20:04)
[2023-01-22] MEDS: DORZOLAMIDE HCL/TIMOLOL MAL. 10 ML EYE DROPS (COSOPT) RIGHT EYE SCH ×2 (09:09→20:04)
[2023-01-22] MEDS: D5NS 1,000 ML IV SCH ×2 (09:13→21:51)
[2023-01-22] MEDS: levalbuterol HCL 0.63 MG/3 ML VIAL.NEB INH SCH ×2 (15:31→23:07)
--- NOTE | 2023-01-22 19:00 | NUR ---
Opening notes Received report from endorsing morning shift RN for continuity of care. Patient is lying in bed with IVF D5NS @ 70 mL/hr, and propofol drip @ 40 mcg/kg/min. Patient's vital signs blood pressure 130/84, heart rate 60, respirations 14, and SPO2 100% on mechanical ventilator. Ventilator settings AC 14, tidal volume 450, FIO2 30%, and peep of 5. Hernández catheter is in placed, draining to gravity. Bed is locked and in lowest position, call light button within reach, fall and safety precautions is in place.
[2023-01-22] MEDS: LATANOPROST 2.5 ML DROPS (XALATAN) OP SCH (20:04)
[2023-01-22] MEDS: ENOXAPARIN SODIUM 40 MG/0.4 ML SYRINGE SUBCUT SCH (20:06)
[2023-01-22] MEDS ORDERED: levalbuterol HCL 0.63 MG/3 ML VIAL.NEB INH ONE (23:26)
[2023-01-23] VITALS (35 sets, daily range): BP systolic 93–181
[2023-01-23] MEDS: PROPOFOL DRIP 100 ML IV PRN ×7 (01:58→22:42)
[2023-01-23] MEDS: TOBRAMYCIN SULFATE 0.3% EYE DROPS 5 ML OP SCH ×6 (02:28→22:41)
[2023-01-23] MEDS: MEROPENEM 500 MG in NS 50 ML IV SCH (05:18)
[2023-01-23 05:56] LABS: BASOPHILS % (AUTO) 0.5 % (0.0-2.0); EOSINOPHILS # (AUTO) 0.1 K/uL (0.0-0.4); EOSINOPHILS % (AUTO) 1.4 % (0.0-4.0); LYMPHOCYTES # (AUTO) 1.4 K/uL (1.0-5.5); LYMPHOCYTES % (AUTO) 15.7 % (20.5-51.5); MEAN CORPUSCULAR HEMOGLOBIN 29 pg (27-31); MEAN CORPUSCULAR HGB CONC 32 % (32-36); MEAN CORPUSCULAR VOLUME 89 fL (79.0-98.0); MONOCYTES # (AUTO) 0.8 K/uL (0.0-1.0); NEUTROPHILS # (AUTO) 6.7 K/uL (1.8-7.7); NEUTROPHILS % (AUTO) 73.4 % (40.0-70.0); PLATELET COUNT (AUTO) 177 K/uL (130-430); RED BLOOD CELL COUNT(AUTO) 3.14 MIL/uL (4.2-6.2); WHITE BLOOD COUNT (AUTO) 9.1 K/uL (4.8-10.8)
[2023-01-23 06:15] LABS: ALBUMIN 2.1 g/dL (3.4-4.8); CREATININE 0.71 mg/dL (0.55-1.30); TOTAL BILIRUBIN 0.4 mg/dL (0.0-1.0)
[2023-01-23] MEDS ORDERED: KCL 40 mEq in 100 mL (PREMIX) 100 ML IV ONE (06:30)
--- NOTE | 2023-01-23 06:30 | NUR ---
HIGH ALERT NOTE: Called Mayte Diaz back at 0630 identified within the medical roster to verify physician authenticity. For potassium of 2.7, please see EMAR for new order.
[2023-01-23] MEDS: levalbuterol HCL 0.63 MG/3 ML VIAL.NEB INH SCH ×2 (07:00→23:01)
[2023-01-23] MEDS: hydrALAZINE HCL 20 MG/ML VIAL IVP PRN (07:03)
--- NOTE | 2023-01-23 08:20 | NUR ---
Dr Rodriguez spoke with patient satya Wick to discuss code status and options for artificial means of nutrition. Nimaria eugenia decided to keep patient a full code and stated that she wants to start tube feeding after full education on options. Code form updated, signed, and in the chart.
--- NOTE | 2023-01-23 08:24 | NUR ---
Called Dr. Tramaine Finney with a consult, spoke with Adrienne from the exchange
[2023-01-23] MEDS: prednisoLONE 1% OPHTHALMIC SUSPN 5 ML OP SCH ×3 (08:45→21:05)
[2023-01-23] MEDS: CHOLECALCIFEROL (VITAMIN D3) 2,000 UNIT TABLET PO SCH (08:45)
[2023-01-23] MEDS: ASPIRIN 81 MG TAB.CHEW NG SCH (08:46)
[2023-01-23] MEDS: FERROUS SULFATE 300 MG/5 ML UDC PO SCH (08:46)
[2023-01-23] MEDS: CARVEDILOL 25 MG TABLET (COREG) PO SCH ×2 (08:46→21:03)
[2023-01-23] MEDS: POTASSIUM CHLORIDE 20 MEQ TAB.PRT.SR PO SCH ×2 (08:46→21:03)
[2023-01-23] MEDS: PANTOPRAZOLE SODIUM 40 MG TAB PO SCH (08:46)
[2023-01-23] MEDS: DOCUSATE SODIUM 100 MG CAPSULE PO SCH (08:46)
[2023-01-23] MEDS: AMIODARONE HCL 200 MG TABLET NG SCH (08:46)
[2023-01-23] MEDS: DORZOLAMIDE HCL/TIMOLOL MAL. 10 ML EYE DROPS (COSOPT) RIGHT EYE SCH ×2 (08:47→21:04)
[2023-01-23] MEDS: TIMOLOL MALEATE 0.5% OPHTHALMIC DROPS 5 ML RIGHT EYE SCH ×3 (08:48→21:04)
[2023-01-23] MEDS: VANCOMYCIN HCL 1,250 MG in NS 250 ML IV SCH (09:00)
--- NOTE | 2023-01-23 09:30 | NUR ---
0900 VANCOMYCIN HELD TOLD BY PHARMACY DUE TO ELEVATED TROUGH.
[2023-01-23] MEDS: D5NS 1,000 ML IV SCH ×2 (12:11→20:39)
[2023-01-23] MEDS: CEFEPIME 2 GM in D5W 100 ML IV SCH (17:13)
[2023-01-23] MEDS: ENOXAPARIN SODIUM 40 MG/0.4 ML SYRINGE SUBCUT SCH (21:03)
[2023-01-23] MEDS: LATANOPROST 2.5 ML DROPS (XALATAN) OP SCH (21:04)
[2023-01-23] MEDS: VANCOMYCIN HCL 2,000 MG in NS 500 ML IV SCH (21:06)
[2023-01-24] VITALS (36 sets, daily range): BP systolic 71–185
[2023-01-24] MEDS: PROPOFOL DRIP 100 ML IV PRN ×4 (01:12→12:43)
[2023-01-24] MEDS: TOBRAMYCIN SULFATE 0.3% EYE DROPS 5 ML OP SCH ×5 (03:53→18:02)
[2023-01-24 05:32] LABS: BASOPHILS # (AUTO) 0.1 K/uL (0.0-0.2); BASOPHILS % (AUTO) 0.8 % (0.0-2.0); EOSINOPHILS # (AUTO) 0.2 K/uL (0.0-0.4); EOSINOPHILS % (AUTO) 2.5 % (0.0-4.0); HEMATOCRIT 28.9 % (36-48); LYMPHOCYTES # (AUTO) 1.9 K/uL (1.0-5.5); LYMPHOCYTES % (AUTO) 22.9 % (20.5-51.5); MEAN CORPUSCULAR HEMOGLOBIN 28 pg (27-31); MEAN CORPUSCULAR HGB CONC 31 % (32-36); MEAN CORPUSCULAR VOLUME 90 fL (79.0-98.0); MONOCYTES # (AUTO) 1.1 K/uL (0.0-1.0); MONOCYTES % (AUTO) 12.8 % (1.7-9.3); NEUTROPHILS # (AUTO) 5.1 K/uL (1.8-7.7); PLATELET COUNT (AUTO) 171 K/uL (130-430); RED BLOOD CELL COUNT(AUTO) 3.21 MIL/uL (4.2-6.2); RED CELL DISTRIBUTION WIDTH 19.8 % (9.0-15.0); WHITE BLOOD COUNT (AUTO) 8.4 K/uL (4.8-10.8)
[2023-01-24] MEDS: CEFEPIME 2 GM in D5W 100 ML IV SCH ×2 (05:56→18:01)
[2023-01-24 05:59] LABS: C-REACTIVE PROTEIN QUANT 12.6 mg/dL (0-0.5); CALCIUM 8.9 mg/dL (8.4-11.0); CREATININE 0.75 mg/dL (0.55-1.30)
[2023-01-24 07:09] LABS: ERYTHROCYTE SEDIMENTATION RATE 70 MM/HR (0-20)
[2023-01-24] MEDS: levalbuterol HCL 0.63 MG/3 ML VIAL.NEB INH SCH ×3 (07:28→23:00)
--- NOTE | 2023-01-24 08:00 | NUR ---
TUBE FEEDING RUNNING 5ML/HR WITH PATIENT RESIDUAL 150ML. HOLDING FEEDING UNTIL RESIDUAL LESS THAN 100ML.
[2023-01-24] MEDS: ASPIRIN 81 MG TAB.CHEW NG SCH (08:11)
[2023-01-24] MEDS: DOCUSATE SODIUM 100 MG CAPSULE PO SCH (08:11)
[2023-01-24] MEDS: PANTOPRAZOLE SODIUM 40 MG TAB PO SCH (08:11)
[2023-01-24] MEDS: FERROUS SULFATE 300 MG/5 ML UDC PO SCH (08:11)
[2023-01-24] MEDS: CARVEDILOL 25 MG TABLET (COREG) PO SCH ×2 (08:11→21:00)
[2023-01-24] MEDS: POTASSIUM CHLORIDE 20 MEQ TAB.PRT.SR PO SCH ×2 (08:12→21:07)
[2023-01-24] MEDS: CHOLECALCIFEROL (VITAMIN D3) 2,000 UNIT TABLET PO SCH (08:12)
[2023-01-24] MEDS: AMIODARONE HCL 200 MG TABLET NG SCH (08:13)
[2023-01-24] MEDS: TIMOLOL MALEATE 0.5% OPHTHALMIC DROPS 5 ML RIGHT EYE SCH ×3 (08:15→21:08)
[2023-01-24] MEDS: DORZOLAMIDE HCL/TIMOLOL MAL. 10 ML EYE DROPS (COSOPT) RIGHT EYE SCH ×2 (08:15→21:07)
[2023-01-24] MEDS: prednisoLONE 1% OPHTHALMIC SUSPN 5 ML OP SCH ×3 (08:15→21:06)
[2023-01-24] MEDS ORDERED: POTASSIUM CHLORIDE 20 MEQ/PKT PACKET PO ONE (09:30)
--- NOTE | 2023-01-24 11:28 | NUR ---
Dietitian Recommendations * Pivot 1.5 at 40 ml/hr (goal rate), Free Water Flush: 150 ml Q4h via NGT Provides (w/ current propofol infusion rate): 2087 kcal/day, 91 gm protein/day, and 1620 ml free water/day Meets: 115% of estimated caloric needs, 88% of lower end of estimated protein needs, and 90% of estimated fluid needs * Continue plan for Reglan to help w/ intolerance LP, MS, RD Please refer to Nutrition Assessment for details. Addendum: 01/24/23 at [address] Amended: Links added.
[2023-01-24] MEDS: METOCLOPRAMIDE HCL 10 MG/2 ML VIAL IVP SCH ×2 (12:33→18:02)
--- NOTE | 2023-01-24 13:50 | NUR ---
RT NOTES Per Rn, CPAP trial per order ( Rn to place order). Pt is awake, increased R.R as soon as switched to CPAP mode, pt was educated on SBT, pt looks as if she's trying to communicate despite being told to relax and that she has a tube that's helping her breathe. Increase PS from 10 to 15, pt appears to relax after a few minutes. Will monitor pt.
--- NOTE | 2023-01-24 14:15 | NUR ---
RT NOTES Pt cont. to tolerate CPAP 5 PS 15. No distress noted, resting comfortably
--- NOTE | 2023-01-24 15:44 | NUR ---
patient on cpap trial since 1350. tolerated well. back on AC mode now.
--- NOTE | 2023-01-24 15:44 | NUR ---
RT NOTES Pt tolerated cpap 5 ps 15 for about 2 hours, switched back to AC
[2023-01-24] MEDS: D5NS 1,000 ML IV SCH (16:49)
--- NOTE | 2023-01-24 18:38 | NUR ---
DR HART ROUNDED ON PATIENT. ORDERED TO CPAP PATIENT IN THE MORNING AND AFTER 2 HOURS OF CPAP TAKE AN ABG. ORDERED TO CALL HIM WITH THE ABG RESULTS FOR POSSIBLE EXTUBATION.
[2023-01-24] MEDS: VANCOMYCIN HCL 2,000 MG in NS 500 ML IV SCH (21:04)
[2023-01-24] MEDS: LATANOPROST 2.5 ML DROPS (XALATAN) OP SCH (21:06)
[2023-01-24] MEDS: ENOXAPARIN SODIUM 40 MG/0.4 ML SYRINGE SUBCUT SCH (21:08)
[2023-01-25] VITALS (28 sets, daily range): BP systolic 85–155
[2023-01-25] MEDS: METOCLOPRAMIDE HCL 10 MG/2 ML VIAL IVP SCH ×5 (00:20→22:30)
[2023-01-25] MEDS: TOBRAMYCIN SULFATE 0.3% EYE DROPS 5 ML OP SCH ×7 (00:32→22:34)
[2023-01-25 05:19] LABS: BASOPHILS # (AUTO) 0.1 K/uL (0.0-0.2); BASOPHILS % (AUTO) 1.3 % (0.0-2.0); EOSINOPHILS # (AUTO) 0.4 K/uL (0.0-0.4); EOSINOPHILS % (AUTO) 5.6 % (0.0-4.0); HEMATOCRIT 24.7 % (36-48); HEMOGLOBIN 7.9 g/dL (12.0-16.0); LYMPHOCYTES # (AUTO) 2.1 K/uL (1.0-5.5); LYMPHOCYTES % (AUTO) 26.6 % (20.5-51.5); MEAN CORPUSCULAR HEMOGLOBIN 29 pg (27-31); MEAN CORPUSCULAR HGB CONC 32 % (32-36); MEAN CORPUSCULAR VOLUME 90 fL (79.0-98.0); MONOCYTES # (AUTO) 0.9 K/uL (0.0-1.0); MONOCYTES % (AUTO) 11.6 % (1.7-9.3); NEUTROPHILS # (AUTO) 4.4 K/uL (1.8-7.7); NEUTROPHILS % (AUTO) 54.9 % (40.0-70.0); PLATELET COUNT (AUTO) 151 K/uL (130-430); RED BLOOD CELL COUNT(AUTO) 2.75 MIL/uL (4.2-6.2); RED CELL DISTRIBUTION WIDTH 19.6 % (9.0-15.0)
[2023-01-25 06:03] LABS: ALBUMIN 1.7 g/dL (3.4-4.8); C-REACTIVE PROTEIN QUANT 7.2 mg/dL (0-0.5); CALCIUM 8.3 mg/dL (8.4-11.0); CREATININE 0.7 mg/dL (0.55-1.30); TOTAL BILIRUBIN 0.4 mg/dL (0.0-1.0)
[2023-01-25] MEDS: CEFEPIME 2 GM in D5W 100 ML IV SCH (06:26)
[2023-01-25] MEDS: D5NS 1,000 ML IV SCH ×2 (06:33→22:34)
[2023-01-25] MEDS: levalbuterol HCL 0.63 MG/3 ML VIAL.NEB INH SCH ×3 (06:52→23:21)
[2023-01-25 07:05] LABS: ERYTHROCYTE SEDIMENTATION RATE 44 MM/HR (0-20)
[2023-01-25] MEDS: FERROUS SULFATE 300 MG/5 ML UDC PO SCH (08:29)
[2023-01-25] MEDS: DOCUSATE SODIUM 100 MG CAPSULE PO SCH (08:30)
[2023-01-25] MEDS: CHOLECALCIFEROL (VITAMIN D3) 2,000 UNIT TABLET PO SCH (08:30)
[2023-01-25] MEDS: PANTOPRAZOLE SODIUM 40 MG TAB PO SCH (08:30)
[2023-01-25] MEDS: CARVEDILOL 25 MG TABLET (COREG) PO SCH ×2 (08:30→22:32)
[2023-01-25] MEDS: AMIODARONE HCL 200 MG TABLET NG SCH (08:30)
[2023-01-25] MEDS: ASPIRIN 81 MG TAB.CHEW NG SCH (08:30)
[2023-01-25] MEDS: TIMOLOL MALEATE 0.5% OPHTHALMIC DROPS 5 ML RIGHT EYE SCH ×3 (08:31→21:00)
[2023-01-25] MEDS: POTASSIUM CHLORIDE 20 MEQ TAB.PRT.SR PO SCH ×2 (08:31→22:31)
[2023-01-25] MEDS: prednisoLONE 1% OPHTHALMIC SUSPN 5 ML OP SCH ×3 (08:31→21:00)
[2023-01-25] MEDS: DORZOLAMIDE HCL/TIMOLOL MAL. 10 ML EYE DROPS (COSOPT) RIGHT EYE SCH ×2 (08:31→21:00)
--- NOTE | 2023-01-25 11:30 | NUR ---
PATIENT EXTUBATED. TOLERATED WELL. ON AEROSOL MIST 8L 35%. NO SIGNS OR SYMPTOMS OF DISTRESS.
--- NOTE | 2023-01-25 12:05 | NUR ---
MRSA REPORT RECEIVED FROM OIL SPECULATOR, PAGED DR Reg RESENDEZ AND LEFT MESSAGE ON POSITIVE MRSA SPUTUM.
--- NOTE | 2023-01-25 14:45 | NUR ---
Wound Evaluation: Wound Consult ordered for Low Vega Score. Patient evaluated for a low Vega score of 17, now a 12. Patient was obtunded, sedated, and received in a [place] Bed. Patient needs to be turned in bed. Skin assessment: 1. Sacral area: Dark discolored skin with scar tissue, present on admission. No odor, no drainage. Skin is intact. Recommend: Cleanse involved area with mild soap and water. Gently pat dry. Apply moisture barrier cream to involved area. Cover with sacral foam dressing for protection. Perform site care daily, and as needed for dressing soiling or dislodgment. 2. Inguinal/Groin areas: IAD with erythema. Skin is intact. Recommend: Cleanse involved areas with mild soap and water. Gently pat dry. Apply moisture barrier cream to involved areas. Perform site care 4 times daily and as needed for soiling. Recommend: Reposition patient side to side only every 2 hours with pillow support. Elevate, off-load and float bilateral heels with 1 pillow lengthwise under each extremity at all times. Offload pressure areas with pillows for pressure re-distribution. Perform skin care and monitor skin integrity Q shift. Use moisture barrier cream on moisture susceptible areas QID and PRN for soiling. Place patient on a low air-loss mattress.
--- NOTE | 2023-01-25 14:50 | NUR ---
ABG TAKEN DUE TO PATIENTS OBTUNDED STATED AND DESATURATION, REPORTED RESULTS TO DR HART. ORDERED TO PLACE PATIENT ON BIPAP.
--- NOTE | 2023-01-25 19:30 | NUR ---
REPEAT ABG DONE. DR HART ORDERED FOR REPEAT ABG AT 0900 AND TO CONTINUE PATIENT ON BIPAP.
--- NOTE | 2023-01-25 19:30 | NUR ---
ENDORSED CONTINUATION OF CARE TO WANDA GALLAGHER
[2023-01-25] MEDS: LATANOPROST 2.5 ML DROPS (XALATAN) OP SCH (21:00)
[2023-01-25] MEDS: VANCOMYCIN HCL 2,000 MG in NS 500 ML IV SCH (21:00)
[2023-01-25] MEDS: hydrALAZINE HCL 20 MG/ML VIAL IVP PRN (22:31)
[2023-01-25] MEDS: ENOXAPARIN SODIUM 40 MG/0.4 ML SYRINGE SUBCUT SCH (22:32)
[2023-01-26] VITALS (24 sets, daily range): BP systolic 82–158
[2023-01-26 05:30] LABS: BASOPHILS # (AUTO) 0.1 K/uL (0.0-0.2); BASOPHILS % (AUTO) 1.1 % (0.0-2.0); EOSINOPHILS # (AUTO) 0.4 K/uL (0.0-0.4); EOSINOPHILS % (AUTO) 5.4 % (0.0-4.0); HEMATOCRIT 24.4 % (36-48); HEMOGLOBIN 7.5 g/dL (12.0-16.0); LYMPHOCYTES # (AUTO) 1.6 K/uL (1.0-5.5); LYMPHOCYTES % (AUTO) 21.7 % (20.5-51.5); MEAN CORPUSCULAR HEMOGLOBIN 29 pg (27-31); MEAN CORPUSCULAR HGB CONC 31 % (32-36); MEAN CORPUSCULAR VOLUME 92 fL (79.0-98.0); MONOCYTES # (AUTO) 0.7 K/uL (0.0-1.0); NEUTROPHILS # (AUTO) 4.5 K/uL (1.8-7.7); NEUTROPHILS % (AUTO) 61.8 % (40.0-70.0); PLATELET COUNT (AUTO) 138 K/uL (130-430); RED BLOOD CELL COUNT(AUTO) 2.65 MIL/uL (4.2-6.2); RED CELL DISTRIBUTION WIDTH 18.6 % (9.0-15.0); WHITE BLOOD COUNT (AUTO) 7.2 K/uL (4.8-10.8)
[2023-01-26 06:00] LABS: ERYTHROCYTE SEDIMENTATION RATE 31 MM/HR (0-20)
[2023-01-26] MEDS: METOCLOPRAMIDE HCL 10 MG/2 ML VIAL IVP SCH ×4 (06:57→23:18)
[2023-01-26] MEDS: levalbuterol HCL 0.63 MG/3 ML VIAL.NEB INH SCH ×3 (07:00→23:35)
[2023-01-26] MEDS: TOBRAMYCIN SULFATE 0.3% EYE DROPS 5 ML OP SCH ×6 (07:00→22:59)
[2023-01-26 07:02] LABS: C-REACTIVE PROTEIN QUANT 4.9 mg/dL (0-0.5); CALCIUM 7.8 mg/dL (8.4-11.0); CREATININE 0.71 mg/dL (0.55-1.30)
[2023-01-26] MEDS: CHOLECALCIFEROL (VITAMIN D3) 2,000 UNIT TABLET PO SCH (08:17)
[2023-01-26] MEDS: CARVEDILOL 25 MG TABLET (COREG) PO SCH ×2 (08:21→22:56)
[2023-01-26] MEDS: ASPIRIN 81 MG TAB.CHEW NG SCH (08:21)
[2023-01-26] MEDS: FERROUS SULFATE 300 MG/5 ML UDC PO SCH (08:21)
[2023-01-26] MEDS: POTASSIUM CHLORIDE 20 MEQ/PKT PACKET PO SCH ×2 (08:21→22:57)
[2023-01-26] MEDS: levoFLOXacin 500 MG TABLET PO SCH (08:22)
[2023-01-26] MEDS: DOCUSATE SODIUM 100 MG/10 ML UDC GT SCH (08:22)
[2023-01-26] MEDS: PANTOPRAZOLE SODIUM 40 MG TAB PO SCH (08:22)
[2023-01-26] MEDS: AMIODARONE HCL 200 MG TABLET NG SCH (08:22)
[2023-01-26] MEDS: prednisoLONE 1% OPHTHALMIC SUSPN 5 ML OP SCH ×3 (08:24→22:55)
[2023-01-26] MEDS: DORZOLAMIDE HCL/TIMOLOL MAL. 10 ML EYE DROPS (COSOPT) RIGHT EYE SCH ×2 (08:25→22:57)
[2023-01-26] MEDS: TIMOLOL MALEATE 0.5% OPHTHALMIC DROPS 5 ML RIGHT EYE SCH ×3 (08:25→22:57)
[2023-01-26] MEDS ORDERED: MODAFINIL 100 MG TABLET (PROVIGIL) PO ONE (11:30)
--- NOTE | 2023-01-26 14:16 | NUR ---
RT NOTES 1320 PT PLACED ON 3L NC. SAT 99% HR 72, RR16. WILL MONITOR. Addendum: 01/26/23 at 1417 by Yuko Purcell RT Amended: Links added.
[2023-01-26] MEDS: methylPREDNISolone SOD SUCC/PF 62.5 MG/ML VIAL IVP SCH ×2 (14:45→22:58)
[2023-01-26] MEDS: D5NS 1,000 ML IV SCH (17:41)
--- NOTE | 2023-01-26 18:42 | NUR ---
Approximately 1100- Dr. Novoa rounded. 1320- RT placed on NC from Bipap. Tolerating well.
--- NOTE | 2023-01-26 18:54 | NUR ---
Approximately 1700- Dr. Redd rounded.
[2023-01-26] MEDS ORDERED: VANCOMYCIN HCL 1,500 MG in NS 250 ML IV SCH (21:00)
[2023-01-26] MEDS: VANCOMYCIN HCL 1,750 MG in NS 500 ML IV SCH (22:54)
[2023-01-26] MEDS: LATANOPROST 2.5 ML DROPS (XALATAN) OP SCH (22:56)
[2023-01-26] MEDS: ENOXAPARIN SODIUM 40 MG/0.4 ML SYRINGE SUBCUT SCH (22:58)
[2023-01-27] VITALS (23 sets, daily range): BP systolic 120–178
[2023-01-27] MEDS: TOBRAMYCIN SULFATE 0.3% EYE DROPS 5 ML OP SCH ×5 (04:10→18:24)
[2023-01-27] MEDS: D5NS 1,000 ML IV SCH ×2 (04:10→14:02)
[2023-01-27 06:01] LABS: BASOPHILS % (AUTO) 0.1 % (0.0-2.0); HEMOGLOBIN 8.5 g/dL (12.0-16.0); LYMPHOCYTES # (AUTO) 0.5 K/uL (1.0-5.5); LYMPHOCYTES % (AUTO) 7.3 % (20.5-51.5); MEAN CORPUSCULAR HEMOGLOBIN 28 pg (27-31); MEAN CORPUSCULAR HGB CONC 31 % (32-36); MEAN CORPUSCULAR VOLUME 91 fL (79.0-98.0); MONOCYTES # (AUTO) 0.1 K/uL (0.0-1.0); NEUTROPHILS # (AUTO) 5.8 K/uL (1.8-7.7); NEUTROPHILS % (AUTO) 91.6 % (40.0-70.0); PLATELET COUNT (AUTO) 136 K/uL (130-430); RED BLOOD CELL COUNT(AUTO) 2.98 MIL/uL (4.2-6.2); RED CELL DISTRIBUTION WIDTH 18.8 % (9.0-15.0); WHITE BLOOD COUNT (AUTO) 6.4 K/uL (4.8-10.8)
[2023-01-27 06:27] LABS: ERYTHROCYTE SEDIMENTATION RATE 61 MM/HR (0-20)
[2023-01-27] MEDS: METOCLOPRAMIDE HCL 10 MG/2 ML VIAL IVP SCH ×3 (06:34→18:24)
[2023-01-27] MEDS: methylPREDNISolone SOD SUCC/PF 62.5 MG/ML VIAL IVP SCH ×3 (06:35→21:31)
[2023-01-27] MEDS: levalbuterol HCL 0.63 MG/3 ML VIAL.NEB INH SCH ×3 (07:23→23:11)
--- NOTE | 2023-01-27 07:30 | NUR ---
Received report from RN. Patient resting comfortably in bed, NC at 2L, TF running at 40mL/hr, IVF at 70mL/hr.
[2023-01-27 07:36] LABS: C-REACTIVE PROTEIN QUANT 3.7 mg/dL (0-0.5); CREATININE 0.7 mg/dL (0.55-1.30)
[2023-01-27] MEDS: PANTOPRAZOLE SODIUM 40 MG TAB PO SCH (08:27)
[2023-01-27] MEDS: DOCUSATE SODIUM 100 MG/10 ML UDC GT SCH (08:27)
[2023-01-27] MEDS: FERROUS SULFATE 300 MG/5 ML UDC PO SCH (08:27)
[2023-01-27] MEDS: POTASSIUM CHLORIDE 20 MEQ/PKT PACKET PO SCH ×2 (08:28→20:20)
[2023-01-27] MEDS: CARVEDILOL 25 MG TABLET (COREG) PO SCH ×2 (08:28→21:30)
[2023-01-27] MEDS: ASPIRIN 81 MG TAB.CHEW NG SCH (08:28)
[2023-01-27] MEDS: CHOLECALCIFEROL (VITAMIN D3) 2,000 UNIT TABLET PO SCH (08:29)
[2023-01-27] MEDS: MODAFINIL 100 MG TABLET (PROVIGIL) PO SCH (08:29)
[2023-01-27] MEDS: AMIODARONE HCL 200 MG TABLET NG SCH (08:29)
[2023-01-27] MEDS: TIMOLOL MALEATE 0.5% OPHTHALMIC DROPS 5 ML RIGHT EYE SCH ×3 (08:30→20:18)
[2023-01-27] MEDS: DORZOLAMIDE HCL/TIMOLOL MAL. 10 ML EYE DROPS (COSOPT) RIGHT EYE SCH ×2 (08:30→20:18)
[2023-01-27] MEDS: prednisoLONE 1% OPHTHALMIC SUSPN 5 ML OP SCH ×3 (08:31→20:17)
[2023-01-27] MEDS: levoFLOXacin 500 MG TABLET PO SCH ×2 (10:26→10:28)
--- NOTE | 2023-01-27 11:26 | NUR ---
Nutrition F/U RD reviewed pts current EMR including diet hx, physician notes, nursing notes, pertinent labs/meds/procedures, care trends and care activity. Subjective Information 01/25: patient successfully extubated and is on bipap RD rounded to ICU and s/w pt RN, Kelvin. RD witnessed pt receiving Pivot 1.5 @40mL/hr via NGT. RD asked about pt still being on feeding tube after being extubated and RN said that they are waiting for swallow eval. RD asked if pt was diabetic d/t high BG but RN said no, it was likely d/t medications or past infection. RN reports no GI issues today or since last night. Per EMR review: abd soft w/ active bowel sounds; pt on NC- 2 L/min; LABS:BG 212 H, CRP 3.7 H (improving). Pt is likely meeting nutritional needs at this time. Current Diet Order/Nutrition Support Pivot 1.5 @ 40 mL/hr (goal) via NGT % PO intake N/A Last BM 01/26 x 1 Estimated Energy Expenditure (kcals/day) 1821 (PSU 2009 d/t critical care, intubated/sedated; Ve: 6.3; Tmax: 37.1'C) Estimated Protein Required (g/day) 103-156 (1.3-2 gm/kg Adj IBW d/t morbid obesity, critical care, COPD) Estimated Fluid Required (l/day) 1.8 (1 ml/kcal/day for GERIAT maintenance) Problem/Etiology/Signs/Symptoms Inadequate EN support R/T increased metabolic demands AEB current TF prescription meets less than 80% of estimated nutritional requirements for critical care/COPD. *resolved Expected Outcomes/Goals - Monitor tolerance and EN support w/ goal of pt meeting at least 80% of estimated nutritional needs, labs trending WNL, normal GI function, and skin integrity/wt maintenance Dietitian Recommendations * Recommend swallow eval * Advance diet per HANGER OFF Follow up *Moderate risk: f/u in 3-5 days GS, MPH, RD
--- NOTE | 2023-01-27 11:28 | NUR ---
Dietitian Recommendations * Recommend swallow evaluation * Advance diet per ACTIVITIES THERAPIST GS, MPH, RD Please refer to Nutrition F/U for further details. Thanks!
[2023-01-27] MEDS: VANCOMYCIN HCL 1,750 MG in NS 500 ML IV SCH (19:50)
[2023-01-27] MEDS: LATANOPROST 2.5 ML DROPS (XALATAN) OP SCH (20:18)
[2023-01-27] MEDS: ENOXAPARIN SODIUM 40 MG/0.4 ML SYRINGE SUBCUT SCH (21:31)
[2023-01-28] VITALS (20 sets, daily range): BP systolic 101–188
[2023-01-28] MEDS: TOBRAMYCIN SULFATE 0.3% EYE DROPS 5 ML OP SCH ×7 (00:39→22:06)
[2023-01-28] MEDS: METOCLOPRAMIDE HCL 10 MG/2 ML VIAL IVP SCH ×5 (00:39→23:40)
[2023-01-28 05:12] LABS: BASOPHILS % (AUTO) 0.1 % (0.0-2.0); HEMATOCRIT 26.6 % (36-48); HEMOGLOBIN 8.3 g/dL (12.0-16.0); LYMPHOCYTES # (AUTO) 0.6 K/uL (1.0-5.5); LYMPHOCYTES % (AUTO) 6.3 % (20.5-51.5); MEAN CORPUSCULAR HEMOGLOBIN 29 pg (27-31); MEAN CORPUSCULAR HGB CONC 31 % (32-36); MEAN CORPUSCULAR VOLUME 92 fL (79.0-98.0); MONOCYTES # (AUTO) 0.3 K/uL (0.0-1.0); MONOCYTES % (AUTO) 3.3 % (1.7-9.3); NEUTROPHILS # (AUTO) 8.5 K/uL (1.8-7.7); NEUTROPHILS % (AUTO) 90.3 % (40.0-70.0); PLATELET COUNT (AUTO) 158 K/uL (130-430); RED BLOOD CELL COUNT(AUTO) 2.89 MIL/uL (4.2-6.2); RED CELL DISTRIBUTION WIDTH 18.6 % (9.0-15.0); WHITE BLOOD COUNT (AUTO) 9.5 K/uL (4.8-10.8)
[2023-01-28 05:42] LABS: ALBUMIN 2.1 g/dL (3.4-4.8); C-REACTIVE PROTEIN QUANT 1.3 mg/dL (0-0.5); CALCIUM 9.4 mg/dL (8.4-11.0); CREATININE 0.65 mg/dL (0.55-1.30); TOTAL BILIRUBIN 0.2 mg/dL (0.0-1.0)
[2023-01-28] MEDS: methylPREDNISolone SOD SUCC/PF 62.5 MG/ML VIAL IVP SCH ×2 (06:19→15:26)
[2023-01-28] MEDS: D5NS 1,000 ML IV SCH ×2 (06:20→21:56)
[2023-01-28] MEDS: hydrALAZINE HCL 20 MG/ML VIAL IVP PRN (06:22)
[2023-01-28 06:53] LABS: ERYTHROCYTE SEDIMENTATION RATE 51 MM/HR (0-20)
[2023-01-28] MEDS: levalbuterol HCL 0.63 MG/3 ML VIAL.NEB INH SCH ×3 (07:00→23:05)
--- NOTE | 2023-01-28 08:00 | NUR ---
PATIENT IN BED, NO SIGNS OR SYMPTOMS OF DISTRESS, A/OX4, ON 2L NASAL CANULA.
[2023-01-28] MEDS: MODAFINIL 100 MG TABLET (PROVIGIL) PO SCH (09:47)
[2023-01-28] MEDS: PANTOPRAZOLE SODIUM 40 MG TAB PO SCH (09:47)
[2023-01-28] MEDS: ASPIRIN 81 MG TAB.CHEW NG SCH (09:47)
[2023-01-28] MEDS: FERROUS SULFATE 300 MG/5 ML UDC PO SCH (09:47)
[2023-01-28] MEDS: AMIODARONE HCL 200 MG TABLET NG SCH (09:47)
[2023-01-28] MEDS: CHOLECALCIFEROL (VITAMIN D3) 2,000 UNIT TABLET PO SCH (09:47)
[2023-01-28] MEDS: DOCUSATE SODIUM 100 MG/10 ML UDC GT SCH (09:48)
[2023-01-28] MEDS: CARVEDILOL 25 MG TABLET (COREG) PO SCH ×2 (09:48→21:44)
[2023-01-28] MEDS: POTASSIUM CHLORIDE 20 MEQ/PKT PACKET PO SCH ×2 (09:48→21:43)
[2023-01-28] MEDS: prednisoLONE 1% OPHTHALMIC SUSPN 5 ML OP SCH ×3 (09:49→21:43)
[2023-01-28] MEDS: TIMOLOL MALEATE 0.5% OPHTHALMIC DROPS 5 ML RIGHT EYE SCH ×3 (09:49→21:54)
[2023-01-28] MEDS: DORZOLAMIDE HCL/TIMOLOL MAL. 10 ML EYE DROPS (COSOPT) RIGHT EYE SCH ×2 (09:49→21:41)
--- NOTE | 2023-01-28 10:32 | NUR ---
SENT PACKET TO [place] [facility] TO [facility] ABOUT MRS BARDALES RETURNING THERE.
--- NOTE | 2023-01-28 10:52 | NUR ---
SPOKE WITH SPEECH THERAPIST, NOTIFIED OF ACTIVE SWALLOW EVALUATION ORDER. SPEECH THERAPIST STATED THAT SHE WILL BE IN TO ASSESS PATIENT LATER TODAY.
--- NOTE | 2023-01-28 11:41 | NUR ---
PATIENT WORKED WITH PHYSICAL THERAPY. TOLERATED WELL.
[2023-01-28] MEDS ORDERED: amLODIPine BESYLATE 5 MG TABLET PO ONE (12:15)
--- NOTE | 2023-01-28 12:19 | NUR ---
Patient accepted at [facility] room 20A. Angella BUTLER at [facility] notified patient is stable for DC to SNF. [phone].
--- NOTE | 2023-01-28 15:52 | NUR ---
ST EVALUATION COMPLETED. ST TX NOT INDICATED AT THIS TIME. RECOMMEND PO DIET OF PUREE/THIN LIQUID. 1:1 FEEDER AND FULL ASPIRATION PRECAUTIONS.
--- NOTE | 2023-01-28 17:52 | NUR ---
REPORT: RECEIVED REPORT FROM ICU NURSE MURRAY.
--- NOTE | 2023-01-28 17:52 | NUR ---
ENDORSED CONTINUATION OF CARE TO TELEMETRY NURSE WILLIE. PATIENT TRANSFERRED IN BED, TOLERATED WELL, ON CONTINUOUS CARDIAC MONITORING DURING TRANSFER. ON 2L NASAL CANULA WITH PRN BIPAP AT BEDSIDE. RT AWARE OF TRANSFER. NO SIGNS OR SYMPTOMS OF DISTRESS. TOLERATED WELL.
--- NOTE | 2023-01-28 18:11 | NUR ---
ICU TRANSFER: RECEIVED PATIENT FROM ICU,ROUTINE VITAL SIGNS TAKEN,AFEBRILE. AWAKE ,ALERT AND ORIENTED X3. MAINTAINED O2 2L/NC,GOOD SATURATION. CALL LIGHT WITH IN REACH. BED LOCKED AT LOWEST POSITION.NO ACUTE DISTRESS. Addendum: 01/28/23 at 1840 by Alida Grimes RN ON TELEMETRY ORDERED.
--- NOTE | 2023-01-28 19:29 | NUR ---
END OF SHIFT: ENDORSED TO NIGHT NURSE RYAN,PATIENT IN STABLE CONDITION.
[2023-01-28] MEDS: VANCOMYCIN HCL 1,750 MG in NS 500 ML IV SCH (21:40)
[2023-01-28] MEDS: ENOXAPARIN SODIUM 40 MG/0.4 ML SYRINGE SUBCUT SCH (21:44)
[2023-01-28] MEDS: METHYLPREDNISOLONE SOD SUCC 40 MG/ML VIAL IVP SCH (21:45)
[2023-01-28] MEDS: LATANOPROST 2.5 ML DROPS (XALATAN) OP SCH (21:57)
[2023-01-29 00:57] VITALS: BP_SYST 145
[2023-01-29] MEDS: TOBRAMYCIN SULFATE 0.3% EYE DROPS 5 ML OP SCH ×6 (02:52→22:07)
--- NOTE | 2023-01-29 03:50 | NUR ---
OPENING NOTES: 1999: Patient was received during change of shift. Patient noted to be in bed resting no noted s/s of distress at the time. AA&Ox4 able to make needs known with call light within reach. Patient was transferred from the ICU during AM shift. Chest rise noted even and unlabored on 2L via NC with NSR on tele monitoring. Patient is total care and non ambulatory. Safety measures in place as per protocol care was resumed. 2200: Patient has been assessed as indicated, and received scheduled 2100 medications as indicated. Evening care was provided. No s/s of distress is noted at this time. Will continue to monitor. 2300: Patient has been placed on BI-PAP as indicated as needed at night. No s/s of distress noted will continue to monitor.
[2023-01-29] MEDS: METOCLOPRAMIDE HCL 10 MG/2 ML VIAL IVP SCH ×3 (06:01→17:47)
[2023-01-29] MEDS: METHYLPREDNISOLONE SOD SUCC 40 MG/ML VIAL IVP SCH ×3 (06:01→22:06)
--- NOTE | 2023-01-29 07:03 | NUR ---
CLOSING NOTES: Patient is in bed watching television, no noted s/s of distress is noted. Chest rise is even and unlabored on 2L via NC and remain on Tele with NSR. Morning care has been provided. Patient is able to communicate needs and call light is within reach. All current shift needs have been met at this time, patient is stable and safety measures remain in place as per protocol. Will differ care to Am shift nurse for continuity of care.
--- NOTE | 2023-01-29 07:30 | NUR ---
MORNING ROUNDS: PATIENT SLEEPING DURING ROUNDS. IV FLUIDS RUNNING AT RIGHT UPPER ARM INTACT. O2 2L/NC,GOOD SATURATION. CALL LIGHT WITH IN REACH. BED LOCKED AT LOWEST POSITION. BED ALARM ON. NO DISTRESS. ON CONTACT ISOLATION PRECAUTION RENDERED.
[2023-01-29 08:10] VITALS: BP_SYST 147
[2023-01-29] MEDS: levalbuterol HCL 0.63 MG/3 ML VIAL.NEB INH SCH ×3 (08:42→22:48)
[2023-01-29] MEDS: DOCUSATE SODIUM 100 MG/10 ML UDC GT SCH (09:11)
[2023-01-29] MEDS: CARVEDILOL 25 MG TABLET (COREG) PO SCH ×2 (09:12→20:58)
[2023-01-29] MEDS: ASPIRIN 81 MG TAB.CHEW NG SCH (09:12)
[2023-01-29] MEDS: FERROUS SULFATE 300 MG/5 ML UDC PO SCH (09:12)
[2023-01-29] MEDS: POTASSIUM CHLORIDE 20 MEQ/PKT PACKET PO SCH ×2 (09:12→20:58)
[2023-01-29] MEDS: MODAFINIL 100 MG TABLET (PROVIGIL) PO SCH (09:13)
[2023-01-29] MEDS: AMIODARONE HCL 200 MG TABLET NG SCH (09:14)
[2023-01-29] MEDS: amLODIPine BESYLATE 5 MG TABLET PO SCH (09:14)
[2023-01-29] MEDS: PANTOPRAZOLE SODIUM 40 MG TAB PO SCH (09:14)
[2023-01-29] MEDS: CHOLECALCIFEROL (VITAMIN D3) 2,000 UNIT TABLET PO SCH (09:15)
[2023-01-29] MEDS: DORZOLAMIDE HCL/TIMOLOL MAL. 10 ML EYE DROPS (COSOPT) RIGHT EYE SCH ×2 (09:16→21:00)
[2023-01-29] MEDS: TIMOLOL MALEATE 0.5% OPHTHALMIC DROPS 5 ML RIGHT EYE SCH ×3 (09:16→21:00)
[2023-01-29] MEDS: prednisoLONE 1% OPHTHALMIC SUSPN 5 ML OP SCH ×3 (09:17→20:59)
[2023-01-29] MEDS: levoFLOXacin 500 MG TABLET PO SCH (09:24)
--- NOTE | 2023-01-29 11:08 | NUR ---
EYE DROPS: PATIENT WOKE UP FOR EYE DROPS. NO PROBLEM.
[2023-01-29 12:00] VITALS: BP_SYST 146
[2023-01-29] MEDS: D5NS 1,000 ML IV SCH (15:10)
[2023-01-29] MEDS ORDERED: PRED20TA PO (15:22)
--- NOTE | 2023-01-29 15:32 | NUR ---
PHYSICAL THERAPY CO-SIGN The Physical Therapy Progress Notes documented by Hvac Journeyman have been reviewed. Reviewed/Co-Signed by: Kranthi Alva Documentation Done by:LIZZY AG Addendum: 01/29/23 at 1533 by Kranthi Alva PT Amended: Links added.
[2023-01-29 16:00] VITALS: BP_SYST 142
--- NOTE | 2023-01-29 18:30 | NUR ---
DC TELE: DOWN GRADE PATIENT TO MEDICAL SURGICAL UNIT PER HOSPITAL PROTOCOL.
--- NOTE | 2023-01-29 19:03 | NUR ---
EVENING ROUNDS: PATIENT STABLE. STILL ON O2 2L/NC,GOOD SATURATION. MAINTAINED ON CONTACT ISOLATION PRECAUTION RENDERED.SAFETY MEASURES RENDERED.CALL LIGHT WITH IN REACH. DNR STATUS.
--- NOTE | 2023-01-29 19:30 | NUR ---
OPENING NOTE Pt laying in bed, awake and alert. No s/s of respiratory distress, breathing even and unlabored. Pt on contact isolation due to MRSA nares. Pt able to make needs known. No complaints of pain at this time. Fall and safety precautions in place. Bed at lowest position, bed alarm on, and call light within reach
[2023-01-29 20:00] VITALS: BP_SYST 151
[2023-01-29] MEDS: ENOXAPARIN SODIUM 40 MG/0.4 ML SYRINGE SUBCUT SCH (20:59)
[2023-01-29] MEDS: LATANOPROST 2.5 ML DROPS (XALATAN) OP SCH (20:59)
[2023-01-30] MEDS: METOCLOPRAMIDE HCL 10 MG/2 ML VIAL IVP SCH ×4 (00:07→18:00)
--- NOTE | 2023-01-30 00:39 | NUR ---
ROUNDS Pt laying in bed, eyes closed. Pt has BiPAP on. No s/s of respiratory distress, breathing even and unlabored. Pt left foot is making a slight kicking motion. Fall and safety precautions in place. Bed at lowest position, bed alarm on, and call light within reach.
[2023-01-30 01:32] VITALS: BP_SYST 130
[2023-01-30] MEDS: TOBRAMYCIN SULFATE 0.3% EYE DROPS 5 ML OP SCH ×6 (02:18→23:54)
--- NOTE | 2023-01-30 04:00 | NUR ---
ROUNDS Pt laying in bed with eyes closed. No s/s of respiratory distress, breathing even and unlabored. Pt wanted Bipap mask off. Pt stated "help me help me, I am dying, I want this off." Pulse oximeter was placed on pt left index finger, reading at 100. Pt wanted RT to come take off bipap mask. Informed pt that RT is making his rounds soon and will come take off Bipap mask. Pt verbalized she understood. Fall and safety precautions in place. Bed at lowest position, bed alarm on, and call light within reach.
--- NOTE | 2023-01-30 04:20 | NUR ---
RT with pt. RT took off Bipap mask. Asked pt if she was okay. Pt stated yes. Fall and safety precautions in place. Bed at lowest position, bed alarm in place, and call light within reach
[2023-01-30 05:56] LABS: ALBUMIN 2.1 g/dL (3.4-4.8); CALCIUM 9.7 mg/dL (8.4-11.0); CREATININE 0.73 mg/dL (0.55-1.30); TOTAL BILIRUBIN 0.2 mg/dL (0.0-1.0); VANCOMYCIN,RANDOM 28.6 ug/mL
[2023-01-30] MEDS: METHYLPREDNISOLONE SOD SUCC 40 MG/ML VIAL IVP SCH ×3 (06:03→20:17)
[2023-01-30] MEDS: D5NS 1,000 ML IV SCH ×2 (06:07→18:06)
--- NOTE | 2023-01-30 06:48 | NUR ---
CLOSING NOTE Pt laying in bed, awake. Pt stated "I feel like I am choking". Pulse oximeter was placed, reading at 100. Elevated head of the bed to high fowlers position. Asked pt if they felt better, pt stated "a bit". Pt has oxygen at 2L NC. Pt stated "I want something to drink". Pt was given water and informed that breakfast will be coming around 0730. No complaints of pain at this time. All needs met throughout shift. Fall and safety precautions in place. Bed at lowest position, bed alarm on, and call light within reach.
[2023-01-30] MEDS: levalbuterol HCL 0.63 MG/3 ML VIAL.NEB INH SCH ×3 (07:22→23:40)
[2023-01-30 08:00] VITALS: BP_SYST 141
--- NOTE | 2023-01-30 08:00 | NUR ---
INITIAL NOTES PATIENT IS ALERT ORIENTED. DENIES ANY CHEST PAIN. COMPLAINT OF SOME SHORTNESS OF BREATH. PATIENT ON 2L NASAL CANULA. IVF INFUSING WELL. NO DISTRESS, CALL LIGHT WITHIN REACH. ENC TO CALL FOR HELP NEEDED.
[2023-01-30] MEDS: POTASSIUM CHLORIDE 20 MEQ/PKT PACKET PO SCH ×2 (09:00→09:44)
[2023-01-30] MEDS: MODAFINIL 100 MG TABLET (PROVIGIL) PO SCH (09:44)
[2023-01-30] MEDS: amLODIPine BESYLATE 5 MG TABLET PO SCH (09:45)
[2023-01-30] MEDS: ASPIRIN 81 MG TAB.CHEW NG SCH (09:46)
[2023-01-30] MEDS: CHOLECALCIFEROL (VITAMIN D3) 2,000 UNIT TABLET PO SCH (09:47)
[2023-01-30] MEDS: DOCUSATE SODIUM 100 MG/10 ML UDC GT SCH (09:48)
[2023-01-30] MEDS: FERROUS SULFATE 300 MG/5 ML UDC PO SCH (09:48)
[2023-01-30] MEDS: AMIODARONE HCL 200 MG TABLET NG SCH (09:49)
[2023-01-30] MEDS: CARVEDILOL 25 MG TABLET (COREG) PO SCH ×2 (09:50→20:14)
[2023-01-30] MEDS: PANTOPRAZOLE SODIUM 40 MG TAB PO SCH (09:51)
[2023-01-30] MEDS: TIMOLOL MALEATE 0.5% OPHTHALMIC DROPS 5 ML RIGHT EYE SCH ×3 (10:08→20:13)
[2023-01-30] MEDS: DORZOLAMIDE HCL/TIMOLOL MAL. 10 ML EYE DROPS (COSOPT) RIGHT EYE SCH ×2 (10:08→20:13)
[2023-01-30] MEDS: prednisoLONE 1% OPHTHALMIC SUSPN 5 ML OP SCH ×3 (10:14→20:13)
[2023-01-30] MEDS: levoFLOXacin 500 MG TABLET PO SCH (10:19)
--- NOTE | 2023-01-30 11:57 | NUR ---
CALL MD RESENDEZ REGARDING [id number] THAT IS PRESCRIBED. CALLING REGARDING THE DOSAGE AND LENGHT OF MEDICATION.
--- NOTE | 2023-01-30 12:05 | NUR ---
ROUNDING NOTES PATIENT RESTING IN HIGH FOWLERS POSITION. PATIENT BREATHING UNLABORED ON 2L NASAL CANULA. NO PAIN, NO DISTRESS, NO SOB. CALL LIGHT WITHIN REACH. BED IS LOCKED IN LOWEST POSITION. ALL NEEDS MET. WILL CONTINUE WITH PLAN OF CARE.
--- NOTE | 2023-01-30 12:21 | NUR ---
MD ROUNDS Seen by Dr Salas and ordered ABG stat and made aware of results. Order lasix and xray in AM.
[2023-01-30 12:54] VITALS: BP_SYST 135
[2023-01-30] MEDS: FUROSEMIDE 20 MG/2 ML VIAL IVP SCH ×2 (13:10→21:09)
--- NOTE | 2023-01-30 14:00 | NUR ---
ROUND NOTES PATIENT RESTING, BREATHING UNLABORED ON 2L NASAL CANULA. NO PAIN, NO DISTRESS, NO SOB. ALL NEEDS MET AT THIS TIME. CALL LIGHT WITHIN REACH. BED LOCKED IN LOWEST POSITION, ALARM ON. WILL CONTINUE WITH PLAN OF CARE.
[2023-01-30 15:04] VITALS: BP_SYST 130
--- NOTE | 2023-01-30 15:28 | NUR ---
PHYSICAL THERAPY CO-SIGN The Physical Therapy Progress Notes documented by Support Coordinator have been reviewed. Reviewed/Co-Signed by: Kranthi Alva Documentation Done by:LIZZY AG Addendum: 01/30/23 at 1528 by Kranthi Alva PT Amended: Links added.
[2023-01-30 17:09] VITALS: BP_SYST 139
--- NOTE | 2023-01-30 19:30 | NUR ---
OPENING NOTE Pt laying in bed awake. No s/s of respiratory distress, breathing even and unlabored. Pt has oxygen at 2L NC. Pt asked when she was getting discharged. Informed pt that she is accepted at [facility], but she needs her Bipap at night so pending on if facility is able to give her the bipap at night. Pt verbalizes understanding. No complaints of pain at this time. Fall and safety precautions in place. Bed at lowest position, bed alarm on, and call light within reach.
[2023-01-30 20:00] VITALS: BP_SYST 140
[2023-01-30] MEDS: LATANOPROST 2.5 ML DROPS (XALATAN) OP SCH (20:13)
[2023-01-30] MEDS: SULFAMETHOXAZOLE/TRIMETHOPR DS 1 TABLET PO SCH (20:14)
[2023-01-30] MEDS: ENOXAPARIN SODIUM 40 MG/0.4 ML SYRINGE SUBCUT SCH (20:14)
[2023-01-31] MEDS: METOCLOPRAMIDE HCL 10 MG/2 ML VIAL IVP SCH ×5 (00:07→23:49)
--- NOTE | 2023-01-31 00:30 | NUR ---
ROUNDS Pt laying in bed with eyes closed. No s/s of respiratory distress, breathing even and unlabored. RT placed Bipap mask on pt. Fall and safety in place. Bed at lowest position, bed alarm on, and call light within reach
[2023-01-31 01:54] VITALS: BP_SYST 155
[2023-01-31] MEDS: TOBRAMYCIN SULFATE 0.3% EYE DROPS 5 ML OP SCH ×6 (03:18→23:49)
--- NOTE | 2023-01-31 04:00 | NUR ---
ROUNDS Pt laying in bed, eyes closed. No s/s of respiratory distress, breathing even and unlabored. Pt has bipap mask on. Pt voided 800ml via [place]. Fall and safety precautions in place. Bed at lowest position, bed alarm on, and call light with in reach.
[2023-01-31] MEDS: FUROSEMIDE 20 MG/2 ML VIAL IVP SCH ×3 (06:03→21:26)
--- NOTE | 2023-01-31 06:49 | NUR ---
CLOSING NOTE Pt laying in bed, eyes closed. No s/s of respiratory distress, breathing even and unlabored. Pt has oxygen at 2L NC. Pt is arousable to name. No complaints of pain at this time. All needs met throughout shift. Fall and safety precaution in place. Bed at lowest position, bed alarm on, and call light within reach
[2023-01-31] MEDS: levalbuterol HCL 0.63 MG/3 ML VIAL.NEB INH SCH ×3 (07:29→23:00)
[2023-01-31 07:43] VITALS: BP_SYST 146
--- NOTE | 2023-01-31 08:00 | NUR ---
Initial notes awake, denies any pain, still feel short of breath, saturation is 99% in 2L. Repositioned. Bed alarm. Call light within reach.
[2023-01-31] MEDS: METHYLPREDNISOLONE SOD SUCC 40 MG/ML VIAL IVP SCH ×2 (09:02→21:26)
[2023-01-31] MEDS: SULFAMETHOXAZOLE/TRIMETHOPR DS 1 TABLET PO SCH ×2 (09:03→21:26)
[2023-01-31] MEDS: FERROUS SULFATE 300 MG/5 ML UDC PO SCH (09:03)
[2023-01-31] MEDS: AMIODARONE HCL 200 MG TABLET NG SCH (09:03)
[2023-01-31] MEDS: DOCUSATE SODIUM 100 MG/10 ML UDC GT SCH (09:03)
[2023-01-31] MEDS: ASPIRIN 81 MG TAB.CHEW NG SCH (09:03)
[2023-01-31] MEDS: CARVEDILOL 25 MG TABLET (COREG) PO SCH ×2 (09:04→21:26)
[2023-01-31] MEDS: CHOLECALCIFEROL (VITAMIN D3) 2,000 UNIT TABLET PO SCH (09:04)
[2023-01-31] MEDS: MODAFINIL 100 MG TABLET (PROVIGIL) PO SCH (09:04)
[2023-01-31] MEDS: amLODIPine BESYLATE 5 MG TABLET PO SCH (09:05)
[2023-01-31] MEDS: PANTOPRAZOLE SODIUM 40 MG TAB PO SCH (09:05)
[2023-01-31] MEDS: prednisoLONE 1% OPHTHALMIC SUSPN 5 ML OP SCH ×3 (09:05→21:28)
[2023-01-31] MEDS: DORZOLAMIDE HCL/TIMOLOL MAL. 10 ML EYE DROPS (COSOPT) RIGHT EYE SCH ×2 (09:06→21:27)
[2023-01-31] MEDS: TIMOLOL MALEATE 0.5% OPHTHALMIC DROPS 5 ML RIGHT EYE SCH ×3 (09:06→21:28)
--- NOTE | 2023-01-31 11:00 | NUR ---
Notes- Watching TV, educate patient on fluid restriction. No distress.
[2023-01-31 11:47] VITALS: BP_SYST 129
--- NOTE | 2023-01-31 12:31 | NUR ---
PHYSICAL THERAPY CO-SIGN The Physical Therapy Progress Notes documented by Golf Course Superintendent have been reviewed. Reviewed/Co-Signed by: Kranthi Alva Documentation Done by:LIZZY AG Addendum: 01/31/23 at 1231 by Kranthi Alva PT Amended: Links added.
--- NOTE | 2023-01-31 15:29 | NUR ---
Patient accepted at [facility] room 20A. Number for report [phone]. Please call Angella at [facility] for transportation to SNF when cleared by Dr Novoa- [phone]. The facility has BiP[facility] for the patient.
--- NOTE | 2023-01-31 15:57 | NUR ---
MD ROUNDS Dr. Novoa here and stated to see patient first.
--- NOTE | 2023-01-31 16:08 | NUR ---
Dr. Novoa, wants ABG test first and call him for results.
--- NOTE | 2023-01-31 17:25 | NUR ---
Respiratory therapist spoke to Dr. Novoa and made aware of ABG results.
--- NOTE | 2023-01-31 17:26 | NUR ---
Spoke to DR. Novoa and okayed to discharge patient back to [facility].
--- NOTE | 2023-01-31 17:52 | NUR ---
Notes- Per charge nurse, Dr. Salas will come to discharge Patient.
--- NOTE | 2023-01-31 18:20 | NUR ---
DR. BULLARD HERE AND ORDER RO DISCHARGE PATIENT BACK TO SNF.
--- NOTE | 2023-01-31 18:25 | NUR ---
[employer] Associate is calling [facility] to arrange transport.
[2023-01-31 18:57] VITALS: BP_SYST 111
--- NOTE | 2023-01-31 19:15 | NUR ---
OPENING NOTE REPORT RECEIVED FROM DAYSHIFT NURSE. PATIENT RECEIVED LYING IN BED, AWAKE, NO S/S OF ACUTE DISTRESS. BREATHING EVEN AND UNLABORED. NASAL CANULA ATTACHED PROPERLY, ON 2L OF OXYGEN. HOB RAISED. IV SITE PATENT, NO SIGNS OF INFILTRATION OR INFECTION NOTED. CALL LIGHT WITH PATIENT. BED ALAM ON. BED IS LOCKED AND AT LOWEST POSITION. WILL CONTINUE TO MONITOR.
[2023-01-31 20:00] VITALS: BP_SYST 143
--- NOTE | 2023-01-31 20:53 | NUR ---
[facility] CALLED AFTER HOURS TO FOLLOW UP ON TRANSPORT . AWAITING ON TO CALL US BACK . HAVE NOT RECEIVED A CALL BACK SINCE 1899
[2023-01-31] MEDS: ENOXAPARIN SODIUM 40 MG/0.4 ML SYRINGE SUBCUT SCH (21:27)
[2023-01-31] MEDS: LATANOPROST 2.5 ML DROPS (XALATAN) OP SCH (21:29)
--- NOTE | 2023-01-31 22:00 | NUR ---
CALLED [facility]ACED A CALL TO [facility] OUR [employer] MANAGER REGARDING [facility] NOT CALLING US BACK SO WE CAN GET A AMBULACE TO [facility] AND TAKE BACK TO SNF. SHE SAID LONG WE CALLED AFTER HOURS AND INFORMED THEM. JUST WAIT FOR THEM TO CALL BACK WE NEED THEM TO SET UP TRANSPORT.
--- NOTE | 2023-01-31 23:00 | NUR ---
ROUNDS PATIENT IN BED, RESTING. NO SIGNS OF DISCOMFORT. CPAP ATTACHED AND OPERATING. HOB RAISED. ALL NEEDS MET. WILL MONITOR.
[2023-02-01 01:26] VITALS: BP_SYST 122
--- NOTE | 2023-02-01 03:00 | NUR ---
ROUNDS NO CHANGE FROM PREVIOUS. ALL NEEDS MET. WILL MONITOR.
[2023-02-01 06:03] LABS: HEMOGLOBIN 8.6 g/dL (12.0-16.0); LYMPHOCYTES # (AUTO) 0.8 K/uL (1.0-5.5); MEAN CORPUSCULAR HEMOGLOBIN 28 pg (27-31); MEAN CORPUSCULAR HGB CONC 32 % (32-36); MEAN CORPUSCULAR VOLUME 89 fL (79.0-98.0); MONOCYTES # (AUTO) 0.5 K/uL (0.0-1.0); NEUTROPHILS # (AUTO) 6.7 K/uL (1.8-7.7); PLATELET COUNT (AUTO) 179 K/uL (130-430); RED BLOOD CELL COUNT(AUTO) 3.02 MIL/uL (4.2-6.2); RED CELL DISTRIBUTION WIDTH 17.7 % (9.0-15.0)
[2023-02-01] MEDS: TOBRAMYCIN SULFATE 0.3% EYE DROPS 5 ML OP SCH ×3 (06:03→15:14)
[2023-02-01] MEDS: FUROSEMIDE 20 MG/2 ML VIAL IVP SCH ×2 (06:04→15:15)
[2023-02-01] MEDS: METOCLOPRAMIDE HCL 10 MG/2 ML VIAL IVP SCH ×2 (06:04→11:14)
--- NOTE | 2023-02-01 06:21 | NUR ---
CLOSING NOTE PATIENT IN BED, RESTING. NO S/S OF ACUTE DISTRESS. BREATHING EVEN AND UNLABORED. HOB RAISED, NASAL CANULA ATTACHED PROPERLY, ON 2L OF OXYGEN. IV SITE PATENT, NO SIGNS OF INFILTRATION OR INFECTION NOTED. ALL NEEDS MET THROUGHOUT SHIFT. FALL, SAFETY PRECAUTION MAINTAINED THROUGHOUT SHIFT. WILL CONTINUE TO MONITOR UNTIL PATIENT CARE IS ENDORSED TO ONCOMING DAYSHIFT NURSE.
[2023-02-01 06:25] LABS: CALCIUM 9.5 mg/dL (8.4-11.0); CREATININE 0.74 mg/dL (0.55-1.30)
[2023-02-01] MEDS: levalbuterol HCL 0.63 MG/3 ML VIAL.NEB INH SCH ×2 (07:57→15:59)
[2023-02-01 08:05] VITALS: BP_SYST 136
[2023-02-01] MEDS: MODAFINIL 100 MG TABLET (PROVIGIL) PO SCH (09:05)
[2023-02-01] MEDS: CARVEDILOL 25 MG TABLET (COREG) PO SCH (09:05)
[2023-02-01] MEDS: PANTOPRAZOLE SODIUM 40 MG TAB PO SCH (09:05)
[2023-02-01] MEDS: ASPIRIN 81 MG TAB.CHEW NG SCH (09:05)
[2023-02-01] MEDS: DOCUSATE SODIUM 100 MG/10 ML UDC GT SCH (09:06)
[2023-02-01] MEDS: AMIODARONE HCL 200 MG TABLET NG SCH (09:06)
[2023-02-01] MEDS: FERROUS SULFATE 300 MG/5 ML UDC PO SCH (09:06)
[2023-02-01] MEDS: SULFAMETHOXAZOLE/TRIMETHOPR DS 1 TABLET PO SCH (09:06)
[2023-02-01] MEDS: DORZOLAMIDE HCL/TIMOLOL MAL. 10 ML EYE DROPS (COSOPT) RIGHT EYE SCH (09:07)
[2023-02-01] MEDS: CHOLECALCIFEROL (VITAMIN D3) 2,000 UNIT TABLET PO SCH (09:07)
[2023-02-01] MEDS: amLODIPine BESYLATE 5 MG TABLET PO SCH (09:08)
[2023-02-01] MEDS: TIMOLOL MALEATE 0.5% OPHTHALMIC DROPS 5 ML RIGHT EYE SCH ×2 (09:08→15:14)
[2023-02-01] MEDS: prednisoLONE 1% OPHTHALMIC SUSPN 5 ML OP SCH ×2 (09:09→15:14)
[2023-02-01] MEDS: METHYLPREDNISOLONE SOD SUCC 40 MG/ML VIAL IVP SCH (09:09)
--- NOTE | 2023-02-01 11:25 | NUR ---
CALLED [facility] FOR PT JOSE JUAN- SHE SAID P/U TIME IS 4PM [facility] TRANSPORT [phone].
[2023-02-01 11:55] VITALS: BP_SYST 127
--- NOTE | 2023-02-01 13:29 | NUR ---
PHYSICAL THERAPY CO-SIGN The Physical Therapy Progress Notes documented by Order Make Up Clerk have been reviewed. Reviewed/Co-Signed by: Kranthi Alva Documentation Done by:LIZZY AG Addendum: 02/01/23 at 1330 by Kranthi Alva PT Amended: Links added.
[2023-02-01 15:23] VITALS: BP_SYST 122
--- NOTE | 2023-02-01 15:30 | NUR ---
SPOKE WITH [facility], ADMISSION, OF [facility] - HE SAID THEY HAVE NO ADMITTING MD FOR PT, SO THEY CANNOT ACCEPT PT. , LUKE DEY MADE AWARE AND SHE WILL CALL [facility].
[2023-02-01 15:40] VITALS: BP_SYST 122
--- NOTE | 2023-02-01 15:59 | NUR ---
SPOKE WITH LUKE DEY, SHE SAID ITS OKAY TO CALL BACK [facility], FOR REPORT, CALL CRISTA TO GIVE REPORT, HE SAID, THE GROUP WILL TALK TO DR CAMPA FIRST BEFORE THEY CAN ADMIT PT. CRISTA TO ME THAT JOEY KNOWS ABOUT IT , AND WE SHOULD NOT SEND THE PT UNTIL WE GET A CALL FROM HIM. Addendum: 02/01/23 at 1617 by Win Nava RN INFORMED [facility] OF THE ABOVE. SHE SAID SHE WILL CALL [facility] AND [facility] AND TO KEEP THE AMBULANCE (THEY ARE HERE NOW) FOR A WHILE.
--- NOTE | 2023-02-01 17:15 | NUR ---
REPORT GIVEN TO NURSE MCKINNEY OF [facility].
--- NOTE | 2023-02-01 17:30 | NUR ---
PICC LINE DISCONTINUED ASEPTICALLY, NO BLEEDING.
--- NOTE | 2023-02-01 18:08 | NUR ---
[facility] PT ON STABLE CONDITION. PT WAS PICKED UP BY [facility]. REPORT GIVEN TO NURSE FAYE. ,
[2023-02-02] MEDS ORDERED: predniSONE 10 MG TABLET PO SCH (09:00)
== END 2023-02-01 17:42 | DRG 870 ==
LOC: SED 08:32 → SIC 11:56 → STU 01-28 16:21 → SMU 01-29 19:22
PROVIDERS: ADMIT Preventive Medicine Preventive Medicine/Occupational Environmental Medicine; ATTEND Specialist
PROC: 5A1955Z Respiratory Ventilation, Greater than 96 Consecutive Hours (ICD-10-PCS; principal; 2023-01-21)
PROC: 02HV33Z Insertion of Infusion Device into Superior Vena Cava, Percutaneous Approach (ICD-10-PCS; 2023-01-22)
PROC: 5A09357 Assistance with Respiratory Ventilation, Less than 24 Consecutive Hours, Continuous Positive Airway Pressure (ICD-10-PCS; 2023-01-25)
PROC: 5A1935Z Respiratory Ventilation, Less than 24 Consecutive Hours (ICD-10-PCS; 2023-01-26)
PROC: 0BH17EZ Insertion of Endotracheal Airway into Trachea, Via Natural or Artificial Opening (ICD-10-PCS; 2023-01-26)
PROC: 5A09357 Assistance with Respiratory Ventilation, Less than 24 Consecutive Hours, Continuous Positive Airway Pressure (ICD-10-PCS; 2023-01-26)
PROC: 5A09357 Assistance with Respiratory Ventilation, Less than 24 Consecutive Hours, Continuous Positive Airway Pressure (ICD-10-PCS; 2023-01-29)
PROC: 5A0935A Assistance with Respiratory Ventilation, Less than 24 Consecutive Hours, High Flow/Velocity Cannula (ICD-10-PCS; 2023-01-29)
DX: A41.9 Sepsis, unspecified organism (principal); J96.02 Acute respiratory failure with hypercapnia; E43 Unspecified severe protein-calorie malnutrition; J18.9 Pneumonia, unspecified organism; E87.0 Hyperosmolality and hypernatremia; J44.0 Chronic obstructive pulmonary disease with (acute) lower respiratory infection; J44.1 Chronic obstructive pulmonary disease with (acute) exacerbation; Z68.42 Body mass index [BMI] 45.0-49.9, adult; Z99.11 Dependence on respirator [ventilator] status; D64.9 Anemia, unspecified; E83.51 Hypocalcemia; E87.6 Hypokalemia; E88.09 Other disorders of plasma-protein metabolism, not elsewhere classified; I11.0 Hypertensive heart disease with heart failure; I50.9 Heart failure, unspecified; I48.91 Unspecified atrial fibrillation; R13.10 Dysphagia, unspecified; Z20.822 Contact with and (suspected) exposure to COVID-19; R73.9 Hyperglycemia, unspecified; Z88.8 Allergy status to other drugs, medicaments and biological substances
CPT/HCPCS: 36415; 36600; 71045; 80048; 80053; 80202; 82803; 83605; 83735; 83880; 84478; 85025; 85610-TC; 85651-TC; 85730-TC; 86140; 87040; 87070-TC; 87081; 87101; 87186-TC; 87205-TC; 92610-GN; 93005; 94002; 94003; 94640; 94660; 94760; 97110-GP; 97530-GP; 99285; G0378; J0360; J0692; J1030; J1650; J1940; J2185; J2704; J2765; J2930; J3370; J3480; J7040; J7050; J7060; J7614